=== PATIENT | male | born 1985 | race Caucasian/White ===

== ENCOUNTER 2020-10-24 18:56 | Emergency (ER) | payer OTHER, SELFPAY ==
[2020-10-24 19:34] VITALS: BP 123/72; PULSE 91; RESP 12; TEMP 36.1; O2SAT 95; BMI 55.3
--- NOTE | 2020-10-24 19:41 | MHC.RECOVSUP ---
? Reason for consult overdose o Current location:ED22H o Identified substance use concern: Heroin - Overdose - Support ? Intervention: o Community resources provided o Harm reduction discussion ? Plan: o Patient to follow up with H after discharge ? Additional information: Patient refused any service But did want resources.. Patient is currently on MAT (Suboxone). Patient stated that he had a relapse and that he don't need a detox But wanted the resources.
--- NOTE | 2020-10-24 21:08 | ED.OVERDOSE ---
HPI - Overdose General Chief Complaint: Overdose Stated Complaint: HEROIN USE Time Seen by Provider: 10/24/20 21:08 History of Present Illness HPI Narrative: Patient 35 years old history of heroin abuse. History of being on Suboxone. Patient took himself off from Suboxone and decided take heroin today. Was found not breathing well. Sent in by EMS. No Narcan was given but patient seems extremely lethargic, sent in for further evaluation. Related Data Allergies Allergy/AdvReac Type Severity Reaction Status Date / Time No Known Allergies Allergy Unverified 04/12/20 15:21 [No Known Allergies*] Review of Systems Review of Systems: Positive shortness of breath positive generalized malaise. All systems reviewed otherwise negative Yes all other systems are reviewed and are negative [facility] Past Medical History Attestation statement: The following information was validated with the patient. Social History Social History Advance Directives: No Advance Directives Information Provided: Yes Physical Exam Vital Signs: Vital Signs: Last Vital Signs Temp 96.9 F 10/24/20 19:34 Pulse 91 10/24/20 19:34 Resp 12 10/24/20 19:34 BP 123/72 10/24/20 19:34 Pulse Ox 95 10/24/20 19:34 Body Mass Index 55.3 Appearance: Alert. Oriented X3. No acute distress. Eyes: Pinpoint pupils bilaterally. ENT: Pharynx normal. Neck: Normal inspection. Neck supple. No lymph nodes noted. No crepitus CVS: Normal heart rate and rhythm. Pulses normal. Normal S1 and S2 Respiratory: No respiratory distress. Breath sounds normal. No Wheezing. No rales Abdomen: Soft and nontender. No rigidity. No distention. good BS x4 Skin: Skin warm and dry. Normal skin color. Normal skin turgor. Extremities: No lower extremity edema. Neurovascular intact to all extremities. No Lacerations. No Rash Neuro: Oriented X 3. No motor deficit. No sensory deficit. Moving all extermities. No slurred speech MDM - Overdose MDM Narrative Medical decision making narrative: Patient monitor in the emergency department for over 2 hours. Is awake alert. Will have patient's family take him home. Patient told to stop using narcotics. Told that he might if he continued to use narcotics. Will send home a nasal Narcan kit. In stable condition. 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 Patient did not want detox at this time Discharge Plan Discharge Clinical Impression: Drug overdose Patient Disposition: Home, Self-Care Instructions: Narcotic Safety (ED), Narcotic Use Disorder (ED) Additional Instructions: Please stop using narcotics. Using narcotics and kill you. He almost today. Please go to detox. Referrals: Zahra Landis NP-C [Primary Care Provider] - 2 days
[2020-10-24] MEDS: Naloxone HCl Nasal TAKE HOME 4 MG SPRAY NOSTRILALT (21:25)
[2020-10-24 21:32] VITALS: BP 118/80; PULSE 91; RESP 16; O2SAT 97
== END 2020-10-24 21:33 | disposition home or self-care (01) ==
PROVIDERS: Emergency Provider Emergency Medicine Emergency Medical Services; PCP Nurse Practitioner Family
DX: T40.1X1A Poisoning by heroin, accidental (unintentional), initial encounter (principal); Y92.9 Unspecified place or not applicable; R06.02 Shortness of breath; Z71.51 Drug abuse counseling and surveillance of drug abuser
CPT/HCPCS: 99284

== ENCOUNTER 2020-10-24 23:03 | Emergency (ER) | payer OTHER, SELFPAY ==
--- NOTE | ~2020-10-24 | XR_ITS ---
EXAMINATION: CHEST 1 VIEW CLINICAL INFORMATION: Shortness of breath. COMPARISON: 10/13/2015. TECHNIQUE: An AP view of the chest is provided. FINDINGS: The cardiac silhouette is not enlarged. The mediastinal and hilar contours are unremarkable. There are neither pleural effusions nor pneumothoraces. There are no consolidations. The osseous structures are stable. XR/XR chest 1V IMPRESSION: No evidence for acute disease.
[2020-10-24 23:51] VITALS: BP 117/69; PULSE 83; RESP 8; TEMP 36.9; O2SAT 95; BMI 29.5
[2020-10-25 00:16] VITALS: O2SAT 97
--- NOTE | 2020-10-25 01:07 | ED.OVERDOSE ---
HPI - Overdose General Chief Complaint: Overdose Stated Complaint: SOB Time Seen by Provider: 10/25/20 00:12 History of Present Illness HPI Narrative: Patient is a 35-year-old male was in the hospital earlier for altered mental status decreased respiratory rate after using heroin. Patient was monitored emergency department for 3 hours. Went home. Became more sleepy again. Family sent the patient back into the emergency department. He denies any fever chills cough and congestion upper respiratory symptoms. No diaphoresis. Patient has no specific complaint at this time. Patient denies using additional heroin after he went home. Related Data Allergies Allergy/AdvReac Type Severity Reaction Status Date / Time No Known Allergies Allergy Unverified 04/12/20 15:21 [No Known Allergies*] Review of Systems Review of Systems: Constitutional: No Weight loss, No Fever, No Chills, No Night Sweats, No Fatigue, No Malaise ENT/Mouth: No Hearing loss, No Ear Pain, No Nasal Congestion, No Sinus Pain, No Hoarseness, No sore throat, No Rhinorrhea, No Swallowing Difficulty Eyes: No Eye Pain, No Swelling, No Redness, No Foreign Body, No Discharge, No Vision Changes Cardiovascular: No Chest Pain, No SOB, No Dyspnea on Exertion, No Orthopnea, No Edema, No Palpitations Respiratory: No Cough, No Sputum, No Wheezing, No Smoke Exposure, No Dyspnea Gastrointestinal: No Nausea, No Vomiting, No Diarrhea, No Constipation, No abdominal Pain, No Hematochezia, No Melena Genitourinary: no irregular bleeding, No Dysuria, No Urinary Frequency, No Hematuria, No Urinary Incontinence, No Urgency, No Flank Pain, No Urinary Flow Changes, No Hesitancy Musculoskeletal: No joint pain, No Myalgias, No Joint Swelling Skin: No Skin Lesions, No rash Neuro: No Weakness, No Numbness, No Paresthesias, No Loss of Consciousness, No Dizziness, No Headache Psych: No Anxiety/Panic, No Depression, No SI/HI/AH/VH, No Social Issues, Heme/Lymph: No Bruising, No Bleeding,No Lymphadenopathy Endocrine: No Polyuria, No Polydipsia, No Temperature Intolerance PMF Past Medical History Attestation statement: The following information was validated with the patient. Medical History Asthma Social History Social History Substance Use Type: Heroin Substance Use Frequency: Daily Last Used Substance: Hours (ago) Any prior treatment program specific to substance use: Yes Advance Directives: No Physical Exam Vital Signs: Vital Signs: Last Vital Signs Temp 98.5 F 10/24/20 23:51 Pulse 83 10/24/20 23:51 Resp 8 L 10/24/20 23:51 BP 117/69 10/24/20 23:51 Pulse Ox 97 10/25/20 00:16 Body Mass Index 29.5 Appearance: Arousable but lethargic. No acute distress. Eyes: Pupils equal, round and reactive to light. ENT: Pharynx normal. Neck: Normal inspection. Neck supple. No lymph nodes noted. No crepitus CVS: Normal heart rate and rhythm. Pulses normal. Normal S1 and S2 Respiratory: No respiratory distress. Breath sounds normal. No Wheezing. No rales Abdomen: Soft and nontender. No rigidity. No distention. good BS x4 Skin: Skin warm and dry. Normal skin color. Normal skin turgor. Extremities: No lower extremity edema. Neurovascular intact to all extremities. No Lacerations. No Rash Neuro: Oriented X 3. No motor deficit. No sensory deficit. Moving all extermities. No slurred speech MDM - Overdose MDM Narrative Medical decision making narrative: Will get chest x-ray labs. Will monitor patient patient carefully for the next few hours. Patient's chest x-ray is grossly negative for any acute evidence of pneumonia. Additional labs are pending. COVID test is pending. Lab Data Result diagrams: 10/25/20 01:08 10/25/20 01:08 Labs: Lab Results 10/25/20 10/25/20 Range/Units 01:08 01:08 WBC 8.5 (4.8-10.8) X10*3/uL RBC 4.38 L (4.60-5.80) X10*6/uL Hgb 12.7 L (14.0-18.0) g/dl Hct 38.5 L (42-52) % MCV 87.9 (80-98) fL MCH 29.0 (27.0-33.0) pg MCHC 33.0 (31.0-36.0) g/dl RDW 11.9 (11.0-16.0) % Plt Count 179 (160-400) X10*3/uL MPV 10.1 (9.4-12.4) fL Immature Gran % (Auto) 0.1 (0.0-0.4) % Neut % (Auto) 53.9 (45-73) % Lymph % (Auto) 30.5 (20-40) % [place] % (Auto) 8.8 (2-11) % Eos % (Auto) 6.0 H (0-4) % Baso % (Auto) 0.7 (0-2) % Lymph # (Auto) 2.6 (1.2-4.9) X10*3/uL [place] # (Auto) 0.8 (0.1-1.2) X10*3/uL Eos # (Auto) 0.5 H (0.0-0.4) X10*3/uL Baso # (Auto) 0.1 (0.0-0.2) X10*3/uL Abs Immat Gran (auto) 0.01 (0.00-0.03) X10*3/uL Absolute Neuts (auto) 4.6 (2.0-8.3) X10*3/uL Absolute Nucleated RBC 0.000 (0.0-0.012) X10*3/uL Nucleated RBC % (auto) 0.0 (0.0-0.2) /100WBC COVID-19 (RAMONE) Negative (Negative) COVID-19 Clin Com See Note
[2020-10-25 01:12] LABS: MANUAL DIFF FLAG NO
[2020-10-25 01:13] LABS: Basophils Absolute Auto 0.1 X10*3/uL (0.0-0.2); Basophils Percent Auto 0.7 % (0-2); Eosinophils Absolute Auto 0.5 X10*3/uL (0.0-0.4); Hematocrit 38.5 % (42-52); Hemoglobin 12.7 g/dl (14.0-18.0); Imm Gran Abs Auto 0.01 X10*3/uL (0.00-0.03); Imm Gran Pct Auto 0.1 % (0.0-0.4); Lymphocytes Absolute Auto 2.6 X10*3/uL (1.2-4.9); Lymphocytes Percent Auto 30.5 % (20-40); Mean Corpuscular Volume 87.9 fL (80-98); Mean Platelet Volume 10.1 fL (9.4-12.4); Monocytes Absolute Auto 0.8 X10*3/uL (0.1-1.2); Monocytes Percent Auto 8.8 % (2-11); Neutrophils Absolute Auto 4.6 X10*3/uL (2.0-8.3); Neutrophils Percent Auto 53.9 % (45-73); Platelet Count 179 X10*3/uL (160-400); Red Blood Count 4.38 X10*6/uL (4.60-5.80); Red Cell Distribution Width 11.9 % (11.0-16.0); White Blood Count 8.5 X10*3/uL (4.8-10.8)
[2020-10-25 01:29] LABS: COVID-19 Test Negative (Negative)
[2020-10-25 01:43] LABS: Ethanol < 10 mg/dL
[2020-10-25 01:45] LABS: Anion Gap 11 (12-20); Blood Urea Nitrogen 15 mg/dL (9-16); Calcium 8.7 mg/dL (8.4-10.2); Carbon Dioxide 32 mmol/L (22-29); Chloride 103 mmol/L (96-108); Creatinine Clr Calc Pharmacy 127.7; Estimated Glomerular Filt Rate > 60; Glucose Random 88 mg/dL (60-115); Potassium 4.1 mmol/L (3.3-5.1); Sodium 142 mmol/L (135-145)
[2020-10-25] MEDS: 0.9 % Sodium Chloride 1,000 ML 999 ML IV (02:02)
[2020-10-25 04:05] VITALS: PULSE 89; RESP 14; TEMP 36.5; O2SAT 98
[2020-10-25 06:00] VITALS: BP 124/70; PULSE 102; RESP 16; TEMP 36.7; O2SAT 97
== END 2020-10-25 08:07 | disposition home or self-care (01) ==
PROVIDERS: Emergency Provider Emergency Medicine Emergency Medical Services
DX: T40.1X1A Poisoning by heroin, accidental (unintentional), initial encounter (principal); Y92.9 Unspecified place or not applicable; R06.02 Shortness of breath; Z20.822 Contact with and (suspected) exposure to COVID-19
CPT/HCPCS: 36415; 71045; 80048; 80320; 85025; 87635; 96360; 99284

== ENCOUNTER 2021-11-12 18:29 | Emergency (ER) | payer OTHER, SELFPAY ==
--- NOTE | 2021-11-12 18:35 | ED_ITS ---
HPI - Overdose General Chief Complaint: Overdose Stated Complaint: HEROIN OD,8MG NARCAN GIVEN W/GOOD RESULT PER EMS Time Seen by Provider: 11/12/21 18:35 Source: patient Mode of arrival: EMS Limitations: no limitations History of Present Illness HPI Narrative: used today after being sober - found 4 bags sniffed them. family found him overdosed, denies prolonged downtime MD complaint: accidental overdose Onset (ago): minute(s) Timing confirmed by: family member Context: Accidental Overdose: wanted to get high Associated symptoms: other (tachycardia) Treatments Prior to Arrival: narcan (8mg IN narcan by family ) Related Data Allergies Allergy/AdvReac Type Severity Reaction Status Date / Time No Known Allergies Allergy Unverified 04/12/20 15:21 [No Known Allergies*] Review of Systems Review of Systems: Constitutional : No Fever, No Chills, No Fatigue, No Malaise ENT/Mouth : No sore throat, No Rhinorrhea Eyes: No Eye Pain, No Swelling, No Redness Cardiovascular : No Chest Pain, No SOB, No Edema, No Palpitations Respiratory : No Cough, No Sputum, No Wheezing Gastrointestinal : No Nausea, No Vomiting, No Diarrhea, No Constipation, No abdominal Pain Genitourinary : No Dysuria, No Urinary Frequency, No Hematuria, Musculoskeletal : No joint pain, No Myalgias, No Joint Swelling Skin : No Skin Lesions, No rash Neuro : No Weakness, No Numbness, No Dizziness, No Headache Psych : No Anxiety/Panic, No Depression, no SI/HI All other systems reviewed and are negative [facility] Past Medical History Attestation statement: The following information was validated with the patient. Medical History Asthma Social History Social History (Updated 11/12/21 @ 19:10 by Tatiana Mcclain DO) Patient Tobacco Use Status: Never used Tobacco Use of substances other than those prescribed or required for medical reasons: Yes Substance Use Type: Heroin Advance Directives: No Advance Directives Information Provided: No Physical Exam Vital Signs: Vital Signs: Last Vital Signs Temp 97.5 F 11/12/21 18:53 Pulse 128 H 11/12/21 18:53 Resp 16 11/12/21 18:53 BP 138/96 H 11/12/21 18:53 Pulse Ox 96 11/12/21 18:53 BMI result Body Mass Index 30.2 Appearance: Alert. Oriented X3. No acute distress. Annoyed Eyes: Pupils equal, round and reactive to light. ENT: Pharynx normal. Neck: Normal inspection. Neck supple. CVS: tachycardic heart rate and rhythm. Pulses normal. Respiratory: No respiratory distress. Breath sounds normal. Abdomen: Soft and non-tender. Skin: Skin warm and dry. Normal skin color. Normal skin turgor. Extremities: No lower extremity edema. No calf ttp Neuro: Oriented X 3. No motor deficit. No sensory deficit. Course Course Course Narrative: HR down to 78 observed for 2.5 hours no need for repeat narcan states he is following up with [facility] still refsues all services here MDM - Overdose MDM Narrative Medical decision making narrative: 36 yo male with hx of substance abuse hadn't used in a while - found 4 bags at home sniffed them. Unintentional overdose - family gave 8mg [place] narcan awake on PD and EMS arrival. He denies SI. He is refusing detox and SUDE evaluation. He is tachycardic but states he is anxious - refusing line and labs. Discharge Plan Discharge Clinical Impression: Opiate overdose Patient Disposition: Home, Self-Care Instructions: Opioid Use Disorder (ED) Additional Instructions: return to ED for any worsening symptoms or concerns stay with a responsible adult if you change your mind and want help with detox, suboxone, methadone we are here
[2021-11-12 18:38] VITALS: BP 131/91; BP 165/110; PULSE 139; PULSE 160; RESP 14; TEMP 36.8; O2SAT 100; O2SAT 96; BMI 30.2
[2021-11-12 18:47] VITALS: PULSE 148
[2021-11-12 18:53] VITALS: BP 138/96; PULSE 128; RESP 16; TEMP 36.4; O2SAT 96
[2021-11-12 20:28] VITALS: PULSE 78
[2021-11-12 20:47] VITALS: BP 143/91; PULSE 100; RESP 15; TEMP 36.4; O2SAT 97
--- NOTE | 2021-11-12 20:51 | HO.SUDE ---
Pt declined to complete a SUDE.
== END 2021-11-12 21:08 | disposition home or self-care (01) ==
PROVIDERS: Emergency Provider Emergency Medicine; PCP Internal Medicine
DX: T40.1X1A Poisoning by heroin, accidental (unintentional), initial encounter (principal); Y92.9 Unspecified place or not applicable; R00.0 Tachycardia, unspecified; Z71.51 Drug abuse counseling and surveillance of drug abuser
CPT/HCPCS: 99283; 99284

== ENCOUNTER 2022-02-22 08:24 | Outpatient (REF) | payer OTHER, SELFPAY ==
[2022-02-22 08:36] LABS: MANUAL DIFF FLAG NO
[2022-02-22 09:55] LABS: Basophils Absolute Auto 0.1 X10*3/uL (0.0-0.2); Basophils Percent Auto 0.8 % (0-2); Eosinophils Absolute Auto 0.2 X10*3/uL (0.0-0.4); Eosinophils Percent Auto 2.6 % (0-4); Hematocrit 50.4 % (42.0-52.0); Hemoglobin 16.9 g/dl (14.0-18.0); Imm Gran Abs Auto 0.02 X10*3/uL (0.00-0.03); Imm Gran Pct Auto 0.3 % (0.0-0.4); Lymphocytes Absolute Auto 1.7 X10*3/uL (1.2-4.9); Lymphocytes Percent Auto 26.5 % (20-40); Mean Corpuscular HGB Conc 33.5 g/dl (31.0-36.0); Mean Corpuscular Hemoglobin 28.9 pg (27.0-33.0); Mean Corpuscular Volume 86.2 fL (80.0-98.0); Monocytes Absolute Auto 0.6 X10*3/uL (0.1-1.2); Monocytes Percent Auto 9.1 % (2-11); Neutrophils Absolute Auto 3.9 x10*3/uL (2.0-8.3); Neutrophils Percent Auto 60.7 % (45-73); Platelet Count 257 X10*3/uL (160-400); Red Blood Count 5.85 X10*6/uL (4.60-5.80); Red Cell Distribution Width 12.5 % (11.0-16.0); White Blood Count 6.5 X10*3/uL (4.8-10.8)
[2022-02-22 10:10] LABS: Alanine Aminotransferase 33 U/L (0-40); Albumin Level 4.6 g/dL (3.5-5.0); Alkaline Phosphatase 68 U/L (39-117); Anion Gap 15 (12-20); Aspartate Amino Transferase 39 U/L (5-37); Bilirubin Total 0.4 mg/dL (0.0-1.0); Blood Urea Nitrogen 13 mg/dL (9-16); Calcium 10.9 mg/dL (8.4-10.2); Carbon Dioxide 27 mmol/L (22-29); Chloride 104 mmol/L (96-108); Cholesterol 204 mg/dL; Estimated Glomerular Filt Rate > 60; Glucose Fasting 101 mg/dL (60-99); HDL Cholesterol 52 mg/dL; LDL Cholesterol Calculated 140 mg/dl; Potassium 4.7 mmol/L (3.3-5.1); Sodium 141 mmol/L (135-145); Total Protein 7.4 g/dL (6.5-8.0); Triglycerides 61 mg/dL
[2022-02-22 10:32] LABS: TSH reflex Free T4 0.53 uIU/mL (0.32-4.0)
== END 2022-02-22 08:25 | disposition home or self-care (01) ==
LOC: HO.LAB 08:24
PROVIDERS: PCP Internal Medicine; Visit Provider Nurse Practitioner Family
DX: I10 Essential (primary) hypertension (principal); E78.00 Pure hypercholesterolemia, unspecified; F11.90 Opioid use, unspecified, uncomplicated; Z76.89 Persons encountering health services in other specified circumstances
CPT/HCPCS: 36415; 80053; 80061; 84443; 85025

== ENCOUNTER 2022-04-13 12:00 | Outpatient (REF) | payer OTHER, SELFPAY ==
--- NOTE | 2022-04-13 14:18 | PFT_ITS ---
INDICATION: Asthma. SPIROMETRY: FEV1 to FVC of 77% with an FEV1 of 4.33 L, which is 107% predicted and an FVC of 5.63 L, which is 212% predicted. No significant response to bronchodilators noted. To note, the [id number] was decreased down to 76% predicted and corrected to normal after bronchodilator is administered. Maximum voluntary ventilation 75% predicted. LUNG VOLUMES: Total lung capacity 110% predicted with residual volume 70% predicted. DIFFUSION CAPACITY: DLCO 113% predicted. COMPARISONS: None. INTERPRETATION: No obstructive nor restrictive ventilatory defects identified. Although, the patient did have some evidence of small airway disease, which could be appreciated with asthma. Lung volumes are within normal limits. Diffusion capacity also within normal limits. Clinical correlation warranted. Zen Lewis MD MR/MODL / [id number]
== END 2022-04-13 12:01 | disposition home or self-care (01) ==
LOC: HO.RESP 12:00
PROVIDERS: PCP Internal Medicine; Visit Provider Internal Medicine
DX: R06.00 Dyspnea, unspecified (principal)
CPT/HCPCS: 94060; 94727; 94729

== ENCOUNTER 2022-05-26 06:40 | Outpatient (REF) | payer OTHER, SELFPAY ==
[2022-05-26 08:15] LABS: Alanine Aminotransferase 25 U/L (0-40); Albumin Level 4.3 g/dL (3.5-5.0); Alkaline Phosphatase 64 U/L (39-117); Anion Gap 16 (12-20); Aspartate Amino Transferase 23 U/L (5-37); Bilirubin Total 0.4 mg/dL (0.0-1.0); Blood Urea Nitrogen 13 mg/dL (9-16); Calcium 9.4 mg/dL (8.4-10.2); Carbon Dioxide 26 mmol/L (22-29); Chloride 104 mmol/L (96-108); Cholesterol 183 mg/dL; Estimated Glomerular Filt Rate > 60; Glucose Fasting 92 mg/dL (60-99); HDL Cholesterol 45 mg/dL; LDL Cholesterol Calculated 87 mg/dl; Potassium 4.4 mmol/L (3.3-5.1); Sodium 142 mmol/L (135-145); Total Protein 7.2 g/dL (6.5-8.0); Triglycerides 258 mg/dL
[2022-05-27 11:41] LABS: Calcium (PTHI) 9.3 mg/dL (8.6-10.3); PTHI 81 pg/mL (16-77)
[2022-05-28 15:12] LABS: Calcium, Ionized 4.9 mg/dL (4.8-5.6)
== END 2022-05-26 06:41 | disposition home or self-care (01) ==
LOC: HO.LAB 06:40
PROVIDERS: PCP Nurse Practitioner Family; Visit Provider Nurse Practitioner Family
DX: E83.52 Hypercalcemia (principal); E78.5 Hyperlipidemia, unspecified
CPT/HCPCS: 36415; 80053; 80061; 82330; 83970

== ENCOUNTER 2022-10-20 14:21 | Emergency (ER) | payer OTHER, SELFPAY ==
--- NOTE | 2022-10-20 14:32 | ECG_ITS ---
Test Reason : OVERDOSE Blood Pressure : / mmHG Vent. Rate : 145 BPM Atrial Rate : 145 BPM P-R Int : 124 ms QRS Dur : 082 ms QT Int : 280 ms P-R-T Axes : 041 -18 017 degrees QTc Int : 434 ms Sinus tachycardia Minimal voltage criteria for LVH, may be normal variant ( R in aVL ) Abnormal ECG No previous ECGs available Referred By: Kadeem Rosario Electronically Signed By:JORDY HERNANDEZ
--- NOTE | 2022-10-20 14:35 | ED.GENADULT ---
HPI - General Adult General Chief complaint: Overdose Stated complaint: OD,IV NARCAN GIVEN W/GOOD RESULT PER EMS Time Seen by Provider: 10/20/22 14:27 Source: patient Mode of arrival: EMS Limitations: no limitations History of Present Illness HPI narrative: 37-year-old male with reportedly no significant past medical history presents with acute overdose accidental. Denies SI or HI. Patient reportedly will has been clean for the past year. Today use for the 1st time in a while. He was found face down by colleagues at work today. EMS arrived, gave him 0.4 mg of Narcan intravenously. Since then he has been alert. Patient denies any nausea, vomiting, lightheadedness, chest pain, palpitations or shortness of breath. Patient's symptoms are described as severe. They were worsened by and acute drug use. They are approved by [employer]. Related Data Home Medications Medication Instructions Recorded Confirmed clonazepam 1 mg tablet 1 mg PO TID PRN 11/21/21 09/26/22 fluoxetine 20 mg capsule 20 mg PO DAILY 11/21/21 09/26/22 ibuprofen 400 mg tablet 400 mg PO TID 11/21/21 09/26/22 Previous Rx's Medication Instructions Recorded albuterol sulfate 90 mcg/actuation 2 puff inhalation Q4-6H PRN 06/11/22 aerosol inhaler (ProAir HFA) shortness of breath or wheezing #8.5 grams omeprazole 20 mg capsule,delayed 20 mg PO DAILY #30 caps 08/04/22 release lidocaine 4 % topical patch 1 patch topical DAILY PRN pain #30 09/26/22 (Aspercreme (lidocaine)) ea sildenafil 25 mg tablet (Viagra) 25 mg PO DAILY PRN sexual activity 09/26/22 #10 tabs cyclobenzaprine 5 mg tablet 5 mg PO BID PRN muscle spasm #20 10/14/22 tabs Allergies Allergy/AdvReac Type Severity Reaction Status Date / Time No Known Allergies Allergy Verified 09/26/22 14:17 [No Known Allergies*] [facility] Past Medical History Medical History Asthma Encounter to establish care Surgical History No pertinent past surgical history Family History Family History Mother Lung cancer Father COPD (chronic obstructive pulmonary disease) Social History Social History Housing: House Patient Tobacco Use Status: Never used Tobacco Smoked in Last 30 Days: Yes e-Cigarette/Vaping Use: Never Used Use of substances other than those prescribed or required for medical reasons: Yes Substance Use Type: Opiates Substance Use Frequency: Chronic Longstanding Substance Use Frequency Other:: has been clean for one year, used for first time again today Last Used Substance: Just Prior to Admission Any prior treatment program specific to substance use: Yes Advance Directives: No Advance Directives Information Provided: No service: No Current occupational status: unemployed Current occupational exposures/hazards: No Cognitive needs: No Hearing needs: No Vision needs: No Physical Exam ED Vital Signs: Vital Signs - 24 hr 10/20/22 14:37 10/20/22 15:29 Temperature 98.0 F 98.0 F Pulse Rate 150 H 139 H Respiratory Rate 12 15 Blood Pressure 124/77 138/93 H Pulse Oximetry 91 L 90 L Oxygen Delivery Method Room Air Room Air BMI result Body Mass Index 31.7 GEN: Well developed, no acute distress, alert, oriented, diaphoretic, pale appearing HEENT: Normocephalic, atraumatic, normal external ears, nose appears normal, no oropharyngeal edema or exudates Eyes: Normal to appearance Neck: Supple, no lymphadenopathy Respiratory: Talks in complete sentences, no respiratory distress, clear to auscultation bilaterally Cardiovascular: Regular rate and rhythm, no murmurs rubs or gallops tachycardic Abdomen: Soft, nontender, nondistended, no guarding, no rebound Back: No CVA tenderness Extremities: No clubbing cyanosis or edema Neurologic: No focal neurologic deficits, cranial nerves 2-12 intact, strength is 5/5 bilaterally, gait normal Skin: No rash Course Course Course Narrative: 37-year-old male presents with acute accidental overdose on opioids. Upon arrival, patient is tachycardic. He is diaphoretic. The rest of his exam is unremarkable. Patient will have IV placed, given intravenous fluids. Will check laboratory analysis. Will obtain EKG. Patient may be in SVT. Will give the patient additional supportive management. It is patient will be observed for at least 2 hours. Reevaluation(s) Reevaluation #1: patient alert, wants to go. Still tachycardic, doesn't wnat to wait for IVF to continue. He will follow up with PMD Time: 18:48 Medications Administered Discontinued Medications Generic Name Dose Route Start Last Admin Trade Name Smitha PRN Reason Stop Dose Admin Sodium Chloride 1,000 mls @ 999 mls/hr 10/20/22 14:45 10/20/22 15:51 Ns IV 10/20/22 15:45 Infused .Q1H1M BIBIANA Infusion Medical Decision Making Medical Decision Making [facility] Narrative: 37-year-old male presents with acute accidental overdose. He is not suicidal or homicidal. Upon arrival, he is diaphoretic and pale appearing. He is tachycardic. Patient reports having been clean for almost a year. Is given Narcan 0 point feeling mg before arrival. Patient will be given supportive therapy. Will check make sure he is not anemic, hyponatremia, hypokalemic. Will make sure he is not in SVT, atrial fibrillation, atrial flutter. Differential Diagnosis SVT, atrial fibrillation, atrial flutter, anemia, electrolyte abnormality Admission/Observation Consideration of admission/observation: Escalation of care including admission/observation considered Lab Data [facility] Lab Attestation statement: I reviewed the patient's lab results. 10/20/22 14:36 10/20/22 14:36 Labs: Lab Results 10/20/22 10/20/22 Range/Units 14:36 14:36 WBC 14.6 H (4.8-10.8) X10*3/uL RBC 5.77 (4.60-5.80) X10*6/uL Hgb 16.9 (14.0-18.0) g/dl Hct 50.1 (42.0-52.0) % MCV 86.8 (80.0-98.0) fL MCH 29.3 (27.0-33.0) pg MCHC 33.7 (31.0-36.0) g/dl RDW 12.2 (11.0-16.0) % Plt Count 272 (160-400) X10*3/uL MPV 10.6 (9.4-12.4) fL Immature Gran % (Auto) 0.8 H (0.0-0.4) % Neut % (Auto) 72.1 (45-73) % Lymph % (Auto) 17.9 L (20-40) % [place] % (Auto) 5.1 (2-11) % Eos % (Auto) 3.3 (0-4) % Baso % (Auto) 0.8 (0-2) % Lymph # (Auto) 2.6 (1.2-4.9) X10*3/uL [place] # (Auto) 0.8 (0.1-1.2) X10*3/uL Eos # (Auto) 0.5 H (0.0-0.4) X10*3/uL Baso # (Auto) 0.1 (0.0-0.2) X10*3/uL Abs Immat Gran (auto) 0.11 H (0.00-0.03) X10*3/uL Absolute Neuts (auto) 10.5 H (2.0-8.3) x10*3/uL Absolute Nucleated RBC 0.000 (0.0-0.012) X10*3/uL Nucleated RBC % (auto) 0.0 (0.0-0.2) /100WBC Sodium 140 (135-145) mmol/L Potassium 3.8 (3.3-5.1) mmol/L Chloride 105 (96-108) mmol/L Carbon Dioxide 25 (22-29) mmol/L Anion Gap 14 (12-20) BUN 13 (9-16) mg/dL Creatinine 1.38 (0.5-1.4) mg/dL Estim Creat Clear Calc 83.5 Estimated GFR 58 Random Glucose 180 H (60-115) mg/dL Calcium 9.6 (8.4-10.2) mg/dL Total Bilirubin 0.3 (0.0-1.0) mg/dL AST 27 (5-37) U/L ALT 31 (0-40) U/L Alkaline Phosphatase 77 (39-117) U/L Total Protein 7.1 (6.5-8.0) g/dL Albumin 4.6 (3.5-5.0) g/dL Ethyl Alcohol < 10 mg/dL Independent Interpretation I performed an independent interpretation of an: EKG (Sinus tachycardia heart rate 145, rate related ST changes, possible LVH) Independent Historian Clinical information obtained from an independent historian. History obtained from or confirmed by: EMS External Record Review External record reviewed: Office record (Primary care visit on 09/26/2022.) Tests considered The following testing was considered but not selected: CT scan Prescription Management I considered prescription management with: Other (Anxiolytics) Chronic Conditions Patient?s care impacted by: Other (Anxiety, depression, drug abuse) Discharge Plan Discharge Clinical Impression: Opiate use, Hyperglycemia, Drug overdose, Sinus tachycardia, Leukocytosis Patient Disposition: Home, Self-Care Instructions: Adult Overdose (ED), Atrial Tachycardia (ED), Nondiabetic Hyperglycemia (ED) Prescriptions: No Action albuterol sulfate [ProAir HFA] 90 mcg/actuation HFA aerosol inhaler 2 puff inhalation Q4-6H PRN (Reason: shortness of breath or wheezing) Qty: 8.5 0RF omeprazole 20 mg capsule,delayed release(DR/EC) 20 mg PO DAILY Qty: 30 2RF cyclobenzaprine 5 mg tablet 5 mg PO BID PRN (Reason: muscle spasm) Qty: 20 0RF lidocaine [Aspercreme (lidocaine)] 4 % adhesive patch,medicated 1 patch topical DAILY PRN (Reason: pain) Qty: 30 0RF sildenafil [Viagra] 25 mg tablet 25 mg PO DAILY PRN (Reason: sexual activity) Qty: 10 0RF Rx Instructions: administer 30 minutes to 4 hours before activity clonazepam 1 mg tablet 1 mg PO TID PRN fluoxetine 20 mg capsule 20 mg PO DAILY ibuprofen 400 mg tablet 400 mg PO TID Referrals: Jun Hartman MD [Primary Care Provider] - 2 days Interventions: [place]-Suicide Risk Severity Scale Last Done: 10/20/22 14:44
[2022-10-20 14:37] VITALS: BP 124/77; PULSE 150; RESP 12; TEMP 36.7; O2SAT 91; BMI 31.7
[2022-10-20 14:44] LABS: MANUAL DIFF FLAG NO
[2022-10-20 14:45] LABS: Basophils Absolute Auto 0.1 X10*3/uL (0.0-0.2); Basophils Percent Auto 0.8 % (0-2); Eosinophils Absolute Auto 0.5 X10*3/uL (0.0-0.4); Eosinophils Percent Auto 3.3 % (0-4); Hematocrit 50.1 % (42.0-52.0); Hemoglobin 16.9 g/dl (14.0-18.0); Imm Gran Abs Auto 0.11 X10*3/uL (0.00-0.03); Imm Gran Pct Auto 0.8 % (0.0-0.4); Lymphocytes Absolute Auto 2.6 X10*3/uL (1.2-4.9); Lymphocytes Percent Auto 17.9 % (20-40); Mean Corpuscular HGB Conc 33.7 g/dl (31.0-36.0); Mean Corpuscular Hemoglobin 29.3 pg (27.0-33.0); Mean Corpuscular Volume 86.8 fL (80.0-98.0); Mean Platelet Volume 10.6 fL (9.4-12.4); Monocytes Absolute Auto 0.8 X10*3/uL (0.1-1.2); Monocytes Percent Auto 5.1 % (2-11); Neutrophils Absolute Auto 10.5 x10*3/uL (2.0-8.3); Neutrophils Percent Auto 72.1 % (45-73); Platelet Count 272 X10*3/uL (160-400); Red Blood Count 5.77 X10*6/uL (4.60-5.80); Red Cell Distribution Width 12.2 % (11.0-16.0); White Blood Count 14.6 X10*3/uL (4.8-10.8)
[2022-10-20] MEDS: 0.9 % Sodium Chloride 1,000 ML 999 ML IV (14:50)
[2022-10-20 15:04] LABS: Alanine Aminotransferase 31 U/L (0-40); Albumin Level 4.6 g/dL (3.5-5.0); Alkaline Phosphatase 77 U/L (39-117); Anion Gap 14 (12-20); Aspartate Amino Transferase 27 U/L (5-37); Bilirubin Total 0.3 mg/dL (0.0-1.0); Blood Urea Nitrogen 13 mg/dL (9-16); Calcium 9.6 mg/dL (8.4-10.2); Carbon Dioxide 25 mmol/L (22-29); Chloride 105 mmol/L (96-108); Creatinine Clr Calc Pharmacy 83.5; Estimated Glomerular Filt Rate 58; Ethanol < 10 mg/dL; Glucose Random 180 mg/dL (60-115); Potassium 3.8 mmol/L (3.3-5.1); Sodium 140 mmol/L (135-145); Total Protein 7.1 g/dL (6.5-8.0)
[2022-10-20 15:29] VITALS: BP 138/93; PULSE 139; RESP 15; TEMP 36.7; O2SAT 90
--- NOTE | 2022-10-20 18:34 | MHC.RECOVSUP ---
Reason for consult: Recovery Support o Current location: #19 o Identified substance use concern: Fentanyl - Overdose <del>-</del> <del>Withdrawal</del> <del>-</del> <del>Seeking</del> <del>ATS</del> <del>(detox)</del> - Support ? Intervention: <del>o</del> <del>ATS</del> <del>bed</del> <del>search</del> <del>started/completed/in</del> <del>process</del> <del>o</del> <del>MAT</del> <del>started</del> <del>or</del> <del>to</del> <del>be</del> <del>started</del> <del>o</del> <del>Community</del> <del>resources</del> <del>provided</del> <del>o</del> <del>Harm</del> <del>reduction</del> <del>discussion</del> ? Plan: <del>o</del> <del>Referral</del> <del>to</del> <del>CCC</del> <del>o</del> <del>Bed</del> <del>search</del> <del>in</del> <del>progress</del> <del>to</del> <del>o</del> <del>Follow</del> <del>up</del> <del>tomorrow</del> <del>o</del> <del>Patient</del> <del>awaiting</del> <del>crisis</del> <del>evaluation</del> <del>o</del> <del>Patient</del> <del>to</del> <del>follow</del> <del>up</del> <del>with</del> <del>[facility]</del> <del>after</del> <del>discharge</del> ? Additional information: I was able to speak with pt and he stated that what happened today was a mistake. states that he has almost a year since the last time that he used any substance. states that he is involved in AA, has a sponsor, works and has a network. pt stated that his mother recently and he is going through a bad break up. he also hurt his back at work. someone at work offered him something to sniff and he didnt think that he would OD. I asked him if he would be interested in Vivitrol and he said no. pt seemed really eager to want to leave the ED. pt was not interested in any recovery resource.
[2022-10-20 18:57] VITALS: PULSE 140; O2SAT 95
== END 2022-10-20 18:58 | disposition home or self-care (01) ==
PROVIDERS: Emergency Provider Emergency Medicine; PCP Internal Medicine
DX: T40.1X1A Poisoning by heroin, accidental (unintentional), initial encounter (principal); Y92.9 Unspecified place or not applicable; R00.0 Tachycardia, unspecified; R73.9 Hyperglycemia, unspecified; Z79.899 Other long term (current) drug therapy; Z71.51 Drug abuse counseling and surveillance of drug abuser
CPT/HCPCS: 36415; 80053; 82077; 85025; 93005; 96360; 99284; 99285

== ENCOUNTER 2022-10-21 08:23 | Emergency (ER) | payer OTHER, SELFPAY ==
--- NOTE | ~2022-10-21 | CT_ITS ---
EXAMINATION: CT CERVICAL SPINE WITHOUT CONTRAST CLINICAL INFORMATION: Status post fall with neck pain. COMPARISON: None available. TECHNIQUE: Multiple axial images of the cervical spine were obtained without the administration of intravenous contrast. Coronal and sagittal reformatted images were obtained. There is some limitation secondary to motion artifact. This CT examination was performed using dose optimization techniques as appropriate, variously including the following: *Automated exposure control *Adjustment of mA and/or kV according to patient size (this includes techniques or standardized protocols for targeted exams where dose is matched to indication/reason for exam; i.e. extremities or head) *Use of iterative reconstruction technique DLP: 631.64 mGy-cm FINDINGS: There is straightening of the normal cervical lordosis with otherwise normal spinal alignment. The vertebral bodies are intact. The intervertebral disc spaces are unremarkable. The neural foramina are patent. The facet joints are unremarkable. The spinous processes are intact. The cervical soft tissues are unremarkable. There is no lymphadenopathy. The thyroid gland is unremarkable. CT/CT cervical spine wo IV con IMPRESSION: Straightening of the normal cervical lordosis may be secondary to positioning and/or muscle spasm. No acute abnormality. Fleischner guidelines were followed.
--- NOTE | ~2022-10-21 | CT_ITS ---
EXAMINATION: CT HEAD WITHOUT CONTRAST CLINICAL INFORMATION: Status post fall with head pain. COMPARISON: None available. TECHNIQUE: Contiguous axial imaging was performed from the skull base to vertex without intravenous administration of contrast. Coronal and sagittal reformatted images were obtained. This CT examination was performed using dose optimization techniques as appropriate, variously including the following: *Automated exposure control *Adjustment of mA and/or kV according to patient size (this includes techniques or standardized protocols for targeted exams where dose is matched to indication/reason for exam; i.e. extremities or head) *Use of iterative reconstruction technique DLP: 671.17 mGy-cm FINDINGS: The cortical sulci are normal. The lateral ventricles are symmetrical. The third and fourth ventricles are in their normal midline position. The basilar and prepontine cisterns are unremarkable. There is no acute intra or extracerebral abnormality. There is no mass effect or midline shift. Mild asymmetric soft tissue swelling in the right frontal region. Sections through the bony calvarium are unremarkable. The paranasal sinuses show small retention cyst versus inflammatory polyp posteriorly in the left maxillary sinus. The bony orbits and orbital contents are unremarkable. Mild anterior nasal septal deviation is seen, apex of the right. Small apical spur in the mid to posterior septum on the right. CT/CT head/brain wo IV con IMPRESSION: 1. No acute intracranial abnormality. 2. Mild asymmetric soft tissue swelling in the right frontal region without acute underlying osseous abnormality. Correlate with physical exam.
--- NOTE | 2022-10-21 08:27 | PC.NURSE ---
security aware of pt arrival
[2022-10-21 08:30] VITALS: BP 151/97; PULSE 113; RESP 14; TEMP 37; O2SAT 96; BMI 31.7
--- NOTE | 2022-10-21 08:38 | PC.NURSE ---
changed over by security. belongings to decon.
--- NOTE | 2022-10-21 10:38 | HO.SUDE ---
This law writer met w/ patient, patient was alert, sitting up in bed, sipping water. Patient reports took an illicit fentanyl pressed pill sold as a perc 30 . Patient reports took PO pill yesterday at work and overdosed at work and came here. Patient states this a.m., took a piece of pressed pill and overdosed. Patient reports has been in recovery for one year from opiates. Patient states had been on Vivitrol, prior to 3 months ago. Patient reports no ETOH use since 2018. Patient reports in the past had tried BUP for 1.5 years, did not have a good experience and transitioned to Vivitrol. Patient reports passing of mother recently and end of 4 year relationship, contributing to reoccurrence. Patient states has a home recovery group and sponsor, attends therapy weekly at [facility]. Harm reduction reviewed. Patient reports has naltrexone pills at home, plans to take if has craving/urge, reviewed precipitated withdrawal, patient aware of precipitated withdrawal will hold on taking naltrexone pill for at least 5 days. T/W reviewed services offered at the [facility], reminded patient if wants to start MAT, can make appt here at [facility] – [place], [place]. Patient verbalized understanding. Patient would like narcan rx at discharge.
[2022-10-21 10:57] LABS: Amphetamine Screen Urine Not Detected (Not Detect); Barbiturates, Urine Not Detected (Not Detect); Benzodiazepines Screen Urine POSITIVE (Not Detect); Cannabinoid Screen Urine Not Detected (Not Detect); Cocaine Screen Urine Not Detected (Not Detect); Fentanyl, urine POSITIVE (Not Detect); Opiate Screen Urine POSITIVE (Not Detect); Phencyclidine Screen Urine Not Detected (Not Detect)
--- NOTE | 2022-10-21 11:14 | ED_ITS ---
HPI - Overdose General Chief Complaint: Overdose Stated Complaint: OD Time Seen by Provider: 10/21/22 08:37 Source: patient and EMS Mode of arrival: EMS Limitations: no limitations History of Present Illness HPI Narrative: 37-year-old male came in by ambulance after was found unresponsive by his father who administered 4 mg of nasal Narcan and patient responded back, patient admitted to sniffing a blue pill that he poured from the street assuming it is Percocet. Patient stated that he fell hit his head and complaining of headache. Patient stated that he is overdose accidentally with no SI or HI no hallucina tion. Related Data Home Medications Medication Instructions Recorded Confirmed clonazepam 1 mg tablet 1 mg PO TID PRN 11/21/21 09/26/22 fluoxetine 20 mg capsule 20 mg PO DAILY 11/21/21 09/26/22 ibuprofen 400 mg tablet 400 mg PO TID 11/21/21 09/26/22 Previous Rx's Medication Instructions Recorded albuterol sulfate 90 mcg/actuation 2 puff inhalation Q4-6H PRN 06/11/22 aerosol inhaler (ProAir HFA) shortness of breath or wheezing #8.5 grams omeprazole 20 mg capsule,delayed 20 mg PO DAILY #30 caps 08/04/22 release lidocaine 4 % topical patch 1 patch topical DAILY PRN pain #30 09/26/22 (Aspercreme (lidocaine)) ea sildenafil 25 mg tablet (Viagra) 25 mg PO DAILY PRN sexual activity 09/26/22 #10 tabs cyclobenzaprine 5 mg tablet 5 mg PO BID PRN muscle spasm #20 10/14/22 tabs Allergies Allergy/AdvReac Type Severity Reaction Status Date / Time No Known Allergies Allergy Verified 09/26/22 14:17 [No Known Allergies*] Review of Systems Review of Systems: All other systems are reviewed and are negative Constitutional: Reports as per HPI and Reports no additional constitutional complaints Eyes: Reports as per HPI and Reports no additional eye complaints Reports system reviewed and no additional complaints, except as documented Cardiovascular: Reports as per HPI and Reports no additional cardiovascular complaints Respiratory: Reports as per HPI and Reports no additional respiratory complaints Gastrointestinal: Reports as per HPI and Reports no additional gastrointestinal complaints Genitourinary: Reports no additional female genitourinary complaints Musculoskeletal: Reports no additional musculoskeletal complaints Skin/Breast: Reports system reviewed and no additional complaints, except as docu Psychiatric: Reports no additional psychiatric complaints Endocrine: Reports no additional endocrine complaints Hematologic/Lymphatic: Reports no additional hematologic/lymphatic complaints Allergic/Immunologic: Reports no additional allergic/immunologic complaints Reports system reviewed and no additional complaints, except as documented and Reports Abnormal speech present [facility] Past Medical History Medical History Asthma Encounter to establish care Surgical History No pertinent past surgical history Family History Family History Mother Lung cancer Father COPD (chronic obstructive pulmonary disease) Social History Social History Housing: House Patient Tobacco Use Status: Never used Tobacco e-Cigarette/Vaping Use: Never Used Use of substances other than those prescribed or required for medical reasons: Yes Substance Use Type: Opiates Advance Directives: No Advance Directives Information Provided: No service: No Current occupational status: unemployed Current occupational exposures/hazards: No Cognitive needs: No Hearing needs: No Vision needs: No Physical Exam Vital Signs: Vital Signs: Last Vital Signs Temp 98.6 F 10/21/22 08:30 Pulse 113 H 10/21/22 08:30 Resp 14 10/21/22 08:30 BP 151/97 H 10/21/22 08:30 Pulse Ox 96 10/21/22 08:30 O2 Del Method Room Air 10/21/22 08:30 BMI result Body Mass Index 31.7 Vital signs have been reviewed as appeared to be correct. Blood pressure normal. Heart rate elevated. Respiration rate normal. Temperature normal. Oxygen saturation normal. Appearance: Alert. Oriented X3. No acute distress. Head: Normal external exam. Normocephalic. Frontal small hematoma. No Herrmann signs noted. No raccoon eyes noted Eyes: PERRLA. EOMI. Conjunctiva and sclera normal. Eyelids normal. ENT: TM's Normal. Pharynx normal. Uvula midline. Moist mucous membranes. No trismus noted. No drooling noted. No muffled voice noted. Neck: Normal inspection. Neck supple. FROM. No adenopathy. Thyroid Normal. No meningeal signs. No neck mass noted. CVS: Normal heart rate and rhythm. Heart sound normal. No murmurs noted. Pulses normal throughout. Respiratory: No respiratory distress. Painless inspiration. Breath sounds normal. No wheezes/rales/rhonchi noted. Chest nontender. No accessory muscle usage noted or decreased air movement noted. Abdomen: Soft and nontender. Bowel sounds normal in all 4 quadrants. No distention noted. No organomegaly noted. No visible injury noted. Back: No CVA tenderness. Full range of motion noted. Skin: Skin warm and dry. Normal skin color. Normal skin turgor. No rashes/lesions/lacerations noted. Extremities: No lower extremity edema. Extremities exhibit normal range of motion. Extremities nontender. Neuro: Oriented X 3. Cranial nerve exam: II-XII are grossly intact No motor deficit. No sensory deficit. Reflexes normal. Course Course Course Narrative: OD respond to Narcan. Closed head injury, patient is awake, alert now, complaining of slight headache that was given Tylenol for with a negative CT scan and GCS of 15. Was seen and evaluated by care team in the emergency department will discharge with Narcan to take home. Medical Decision Making Differential Diagnosis Differential Diagnoses: The differential diagnosis associated with the presentation includes (Intracranial bleed, cervical spine injury, accidental overdose, depression, SI.) Lab Data MDM Lab Attestation statement: I reviewed the patient's lab results. Labs: Lab Results 10/21/22 Range/Units 10:09 Urine Opiates Screen POSITIVE H (Not Detect) Urine Fentanyl Screen POSITIVE H (Not Detect) Ur Barbiturates Screen Not Detected (Not Detect) Ur Phencyclidine Scrn Not Detected (Not Detect) Ur Amphetamines Screen Not Detected (Not Detect) U Benzodiazepines Scrn POSITIVE H (Not Detect) Urine Cocaine Screen Not Detected (Not Detect) U Marijuana (THC) Screen Not Detected (Not Detect) Independent Interpretation I performed an independent interpretation of an: CT Scan (Head and cervical spine: No acute intracranial pathology, no C-spine fracture or subluxation.) Radiology Impression Discussion of test interpretation with radiology: I have reviewed the radiologist's reading. Chronic Conditions Patient?s care impacted by: Other (Substance abuse.) Discharge Plan Discharge Clinical Impression: Drug overdose, Substance abuse, Closed head injury Patient Disposition: Home, Self-Care Instructions: Head Injury (ED), Adult Overdose (ED) Prescriptions: No Action albuterol sulfate [ProAir HFA] 90 mcg/actuation HFA aerosol inhaler 2 puff inhalation Q4-6H PRN (Reason: shortness of breath or wheezing) Qty: 8.5 0RF omeprazole 20 mg capsule,delayed release(DR/EC) 20 mg PO DAILY Qty: 30 2RF cyclobenzaprine 5 mg tablet 5 mg PO BID PRN (Reason: muscle spasm) Qty: 20 0RF lidocaine [Aspercreme (lidocaine)] 4 % adhesive patch,medicated 1 patch topical DAILY PRN (Reason: pain) Qty: 30 0RF sildenafil [Viagra] 25 mg tablet 25 mg PO DAILY PRN (Reason: sexual activity) Qty: 10 0RF Rx Instructions: administer 30 minutes to 4 hours before activity clonazepam 1 mg tablet 1 mg PO TID PRN fluoxetine 20 mg capsule 20 mg PO DAILY ibuprofen 400 mg tablet 400 mg PO TID Referrals: Jun Hartman MD [Primary Care Provider] - Interventions: Bennett-Suicide Risk Severity Scale Last Done: 10/21/22 08:32
[2022-10-21] MEDS: Naloxone HCl Nasal TAKE HOME 4 MG SPRAY NOSTRILALT (11:20)
[2022-10-21] MEDS: Acetaminophen 325 MG TABLET 650 MG PO (11:20)
== END 2022-10-21 11:34 | disposition home or self-care (01) ==
PROVIDERS: Emergency Provider Emergency Medicine; PCP Internal Medicine
DX: R40.4 Transient alteration of awareness (principal); T50.901A Poisoning by unspecified drugs, medicaments and biological substances, accidental (unintentional), initial encounter; F19.10 Other psychoactive substance abuse, uncomplicated; S09.90XA Unspecified injury of head, initial encounter; W17.89XA Other fall from one level to another, initial encounter; Y93.89 Activity, other specified; Y92.019 Unspecified place in single-family (private) house as the place of occurrence of the external cause; Y99.9 Unspecified external cause status; Z79.899 Other long term (current) drug therapy
CPT/HCPCS: 70450; 72125; 80307; 99284; 99285

== ENCOUNTER 2022-10-26 16:51 | Emergency (ER) | payer OTHER, SELFPAY ==
--- NOTE | ~2022-10-26 | XR_ITS ---
EXAMINATION: XR CHEST CLINICAL INFORMATION: Reason for Exam sob COMPARISON: Chest radiograph 10/25/2020 TECHNIQUE: 2 views of the chest FINDINGS: Patchy left basilar retrocardiac airspace opacities raising suspicion for infection or aspiration. No pneumothorax or pleural effusion. Normal cardiomediastinal silhouette. XR/XR chest 1V IMPRESSION: Patchy left basilar retrocardiac airspace opacities raising suspicion for infection or aspiration. Recommend follow-up radiographs to ensure resolution.
[2022-10-26 17:00] VITALS: BP 144/80; BP 160/90; PULSE 125; PULSE 126; RESP 16; TEMP 36.5; O2SAT 95; O2SAT 99; BMI 31.7
--- NOTE | 2022-10-26 17:07 | ED.OVERDOSE ---
HPI - Overdose General Chief Complaint: Overdose Stated Complaint: od Time Seen by Provider: 10/26/22 16:59 History of Present Illness HPI Narrative: Patient is a 37-year-old male positive heroin use. Has no suicidal homicidal ideation. No fever no chills no chest pain or shortness breath no nausea no vomiting. Patient is from home. Related Data Home Medications Medication Instructions Recorded Confirmed clonazepam 1 mg tablet 1 mg PO TID PRN 11/21/21 09/26/22 fluoxetine 20 mg capsule 20 mg PO DAILY 11/21/21 09/26/22 ibuprofen 400 mg tablet 400 mg PO TID 11/21/21 09/26/22 Previous Rx's Medication Instructions Recorded albuterol sulfate 90 mcg/actuation 2 puff inhalation Q4-6H PRN 06/11/22 aerosol inhaler (ProAir HFA) shortness of breath or wheezing #8.5 grams omeprazole 20 mg capsule,delayed 20 mg PO DAILY #30 caps 08/04/22 release lidocaine 4 % topical patch 1 patch topical DAILY PRN pain #30 09/26/22 (Aspercreme (lidocaine)) ea sildenafil 25 mg tablet (Viagra) 25 mg PO DAILY PRN sexual activity 09/26/22 #10 tabs cyclobenzaprine 5 mg tablet 5 mg PO BID PRN muscle spasm #20 10/14/22 tabs Allergies Allergy/AdvReac Type Severity Reaction Status Date / Time No Known Allergies Allergy Verified 09/26/22 14:17 [No Known Allergies*] Review of Systems Review of Systems: No fever no chills no coughing or congestion or worsening symptoms Yes all other systems are reviewed and are negative PMFSH Past Medical History Attestation statement: The following information was validated with the patient. Medical History Asthma Encounter to establish care Surgical History No pertinent past surgical history Family History Family History Mother Lung cancer Father COPD (chronic obstructive pulmonary disease) Social History Social History Housing: House Patient Tobacco Use Status: Never used Tobacco Smoked in Last 30 Days: No e-Cigarette/Vaping Use: Never Used Use of substances other than those prescribed or required for medical reasons: Yes Substance Use Type: Heroin Substance Use Frequency: Recent Binge Last Used Substance: Just Prior to Admission Any prior treatment program specific to substance use: Yes Advance Directives: No Advance Directives Information Provided: No service: No Current occupational status: unemployed Current occupational exposures/hazards: No Cognitive needs: No Hearing needs: No Vision needs: No Physical Exam Vital Signs: Vital Signs: Last Vital Signs Temp 98.0 F 10/26/22 18:16 Pulse 109 H 10/26/22 18:16 Resp 20 10/26/22 18:16 BP 125/79 10/26/22 18:16 Pulse Ox 94 10/26/22 18:16 O2 Del Method Room Air 10/26/22 18:16 BMI result Body Mass Index 31.7 Appearance: Alert. Oriented X3. No acute distress. Eyes: Pupils equal, round and reactive to light. ENT: Pharynx normal. Neck: Normal inspection. Neck supple. No lymph nodes noted. No crepitus CVS: Normal heart rate and rhythm. Pulses normal. Normal S1 and S2 Respiratory: No respiratory distress. Breath sounds normal. No Wheezing. No rales Abdomen: Soft and nontender. No rigidity. No distention. good BS x4 Skin: Skin warm and dry. Normal skin color. Normal skin turgor. Extremities: No lower extremity edema. Neurovascular intact to all extremities. No Lacerations. No Rash Neuro: Oriented X 3. No motor deficit. No sensory deficit. Moving all extermities. No slurred speech Medical Decision Making Medical Decision Making MDM Narrative: Patient well appearing no acute distress. Monitor in the emergency department for 2 hours. No signs of relapse. Chest x-ray showed no evidence of fracture from CPR. In no distress. Will discharge home. Will offer patient detox. Differential Diagnosis Overdose on heroin, rib fracture, pneumothorax Lab Data [facility] Lab Attestation statement: I reviewed the patient's lab results. Independent Interpretation I performed an independent interpretation of an: Plain X-Ray Interpretation: No pneumonia no pneumothorax no rib fracture Social Determinants Patient?s care significantly limited by Social Determinants of Health including: Inadequate housing, Low income and Alcoholism and drug addiction in family Discharge Plan Discharge Clinical Impression: Narcotic drug use Patient Disposition: Home, Self-Care Instructions: Opioid Use Disorder (ED) Prescriptions: No Action albuterol sulfate [ProAir HFA] 90 mcg/actuation HFA aerosol inhaler 2 puff inhalation Q4-6H PRN (Reason: shortness of breath or wheezing) Qty: 8.5 0RF omeprazole 20 mg capsule,delayed release(DR/EC) 20 mg PO DAILY Qty: 30 2RF cyclobenzaprine 5 mg tablet 5 mg PO BID PRN (Reason: muscle spasm) Qty: 20 0RF lidocaine [Aspercreme (lidocaine)] 4 % adhesive patch,medicated 1 patch topical DAILY PRN (Reason: pain) Qty: 30 0RF sildenafil [Viagra] 25 mg tablet 25 mg PO DAILY PRN (Reason: sexual activity) Qty: 10 0RF Rx Instructions: administer 30 minutes to 4 hours before activity clonazepam 1 mg tablet 1 mg PO TID PRN fluoxetine 20 mg capsule 20 mg PO DAILY ibuprofen 400 mg tablet 400 mg PO TID Referrals: Jun Hartman MD [Primary Care Provider] -
[2022-10-26 18:16] VITALS: BP 125/79; PULSE 109; RESP 20; TEMP 36.7; O2SAT 94
[2022-10-26] MEDS: Doxycycline Monohydrate 100 MG CAPSULE PO (19:01)
--- NOTE | 2022-10-26 19:04 | MHC.RECOVSUP ---
? Reason for consult: Recovery Support o Current location: ?ED6 o Identified substance use concern: JOSE LUIS? - Overdose - Support ? ?Intervention: o Community resources provided o Harm reduction discussion ? Plan: o Referral to [facility] o Follow up tomorrow ? ? Additional information:?Consult with provider before entry. personal health coach connected with pt and reviewed harm reduction strategies and options for treatment. Referral for [facility] through [facility] was submitted along with [facility]
[2022-10-26] MEDS: Naloxone HCl Nasal TAKE HOME 4 MG SPRAY NOSTRILALT (19:33)
--- NOTE | 2022-10-26 19:46 | PC.NURSE ---
per previous shift rn pt not changed over and belongings not secured by security. scrap charger aware. pt up for discharge prior to arrival of this rn. previous shift rn provided pt with discharge instructions. take home narcan given to pt. pt verbalized to this rn that father was supposed to pick pt up for ride home. pt states father will not be picking pt up as family member does not want pt to be in the home. this rn spoke with dr ortiz per md contact care team. this rn contacted care team who states that since this is pt residence pt legally can go into the home. this rn educated pt on this. pt called brother to pick him up.pt awaiting ride from brother in ed room 6. scrap charger aware
--- NOTE | 2022-10-26 20:39 | PC.NURSE ---
pt pt okay to discharge to waiting room to await ride from brother. dr ortiz and charge gang weigher aware. pt ambulatory at discharge
== END 2022-10-26 20:40 | disposition home or self-care (01) ==
PROVIDERS: Emergency Provider Emergency Medicine Emergency Medical Services; PCP Internal Medicine
DX: T40.1X1A Poisoning by heroin, accidental (unintentional), initial encounter (principal); Y92.9 Unspecified place or not applicable; Z71.51 Drug abuse counseling and surveillance of drug abuser; Z79.899 Other long term (current) drug therapy
CPT/HCPCS: 71045; 99283; 99284

== ENCOUNTER 2023-07-03 14:21 | Outpatient (AMB) | payer OTHER, SELFPAY ==
[2023-07-03 14:26] VITALS: BP 138/72; PULSE 90; O2SAT 97; BMI 34.0
--- NOTE | 2023-07-03 14:26 | A.OFFPC_ITS ---
Vital Signs 07/03/23 14:26 Height 5 ft 9 in Weight 230 lb 2 oz BMI 34.0 BP 138/72 Blood Pressure Location Lt brachial Position Sitting Pulse 90 Pulse Source Pulse Oximeter Pulse Oximetry (%) 97 Oxygen Delivery Method Room Air Intake Visit Reasons: follow up [employer] Required: No Accompanied by: Self / Same As Patient Allergies No Known Allergies [No Known Allergies*] Allergy (Verified 07/03/23 15:14) Medication List - Last Reconciled 07/03/23 by Jun Hartman MD albuterol sulfate 90 mcg/actuation (ProAir HFA) 2 puffs inhalation Q4-6H PRN clonazepam 1 mg PO TID PRN cyclobenzaprine 5 mg PO BID PRN fluoxetine 20 mg PO DAILY ibuprofen 400 mg PO TID lidocaine 4% (Aspercreme (lidocaine)) 1 patch topical DAILY PRN naltrexone microspheres ER (Vivitrol) 380 mg IM Q4W omeprazole 20 mg PO DAILY prednisone 20 mg PO DAILY 5 days sildenafil (Viagra) 25 mg PO DAILY PRN Tobacco use date assessed: 07/03/23 Dental Screening Dental Screen Date: 07/03/23 Did you have a dental visit in the last 12 months?: No Did you have a dental problem in the last 6 months where you did not have access to dental care?: No Was dental information given to patient?: No HPI follow up HPI Details Patient comes in today for his follow up visit He has been following up with our nurse practitioners since he switched over here from Dr. Sawant last year in October 2021 and this is the first time I am seeing patient today Relates (+) Hx of substance abuse and was last seen at the ER here at [facility] in October 2022 for heroin overdose He also was found to have a retorcardiac infiltrate on chest x-rays back then and was started empirically on oral Doxycycline x 7 days, which he states he took completely He is now on Vivitrol injections Q 28 to 30 days from [facility] in [facility] States that he has been experiencing a persistent ringing in both of his ears for the past week Notes that the ringing in his ears has been constant/persistent for the past 3 days and he is now unable to sleep much at night due to the ringing Is thinking that his symptoms may be related to (side effect) her Fluoxetine Rx He denies any ear pain or discharge; denies any recent cough or cold symptoms or sore throat He denies any fever, headaches or dizziness Denies any chest pains, no SOB No nausea/vomiting, no abdominal pain No change in bowel habits noted Adds that he has been experiencing increased pain over his lower back lately and would like to get some muscle relaxant Rx to help relieve his back symptoms States that he's had problems with his lower back for a while now [facility] Medical History (Updated 07/05/23 @ 18:20 by Jun Hartman MD) Obesity (BMI 30-39.9) Depression Anxiety GERD (gastroesophageal reflux disease) Substance abuse Asthma Surgical History No pertinent past surgical history Family History Mother Lung cancer Father COPD (chronic obstructive pulmonary disease) Social History Housing: House Patient Tobacco Use Status: Never used Tobacco e-Cigarette/Vaping Use: Never Used Substance Use Type: Heroin service: No Current occupational status: unemployed Current occupational exposures/hazards: No Cognitive needs: No Hearing needs: No Vision needs: No Questionnaire PHQ-9 Over the last 2 weeks, how often have you been bothered by any of the following problems? 1. Little interest or pleasure in doing things: more than half the days 2. Feeling down, depressed, or hopeless: more than half the days 3. Trouble falling or staying asleep, or sleeping too much: nearly every day 4. Feeling tired or having little energy: more than half the days 5. Poor appetite or overeating: more than half the days 6. Feeling bad about yourself - or that you are a failure or have let yourself or your family down: not at all 7. Trouble concentrating on things, such as reading the newspaper or watching television: several days 8. Moving or speaking so slowly that other people could have noticed. Or the opposite - being so fidgety or restless that you have been moving around a lot more than usual: more than half the days 9. Thoughts that you would be better off or of hurting yourself in some way: not at all Total score: 14 Depression Screening Interpretation: Positive Depression Screening Follow-up: Existing condition and In treatment Depression Screening Done: Yes 70264 - PHQ-9 Billing: Yes Source: Developed by Drs. Bear Gonzales, Marlin Hernandez, Dion Larson and colleagues, with an educational alisha from [employer] Thrive Questionnaire Date Thrive assessed: 07/03/23 I am a: Patient What is your living situation today?: I have a steady place to live Within the past 12 months, did the food you bought not last and you didn't have the money to get more?: Never true Within the past 12 months, did you worry whether your food would run out before you got money to buy more?: Never true Do you have trouble paying for medicines?: No Do you have trouble getting transportation to medical appointments?: No Do you have trouble paying your heating and electricity bill?: No Do you have trouble taking care of your child, family member or friend?: No Do you have trouble with day-to-day activities such as bathing, preparing meals, shopping, managing finances, etc.?: No Are you currently unemployed and looking for a job?: No Are you interested in more education?: No Please select the resources that you would like help with: None Currently or been in a relationship where the following occur: no concerns reported AUDIT C Alcohol Use Questionnaire (AUDIT-C) 1. How often do you have a drink containing alcohol?: Never 3. How often do you have six or more drinks on one occasion?: Never Total Score: 0 Score Reviewed/Action Taken: Yes ROGER-7 AMB Questionnaire ROGER-7 Date ROGER - 7 assessed: 07/03/23 Feeling nervous, anxious, or on edge: 0 = Not at all Not being able to stop or control worryin = Not at all Worrying too much about different things: 0 = Not at all Trouble relaxin = Not at all Being so restless that it is hard to sit still: 0 = Not at all Becoming easily annoyed or irritable: 0 = Not at all Feeling afraid as if something awful might happen: 0 = Not at all Total ROGER-7 score (0-4 normal; 5-9 mild; 10-14 moderate; 15-21 severe): 0 Source: Developed by Drs. Bear Gonzales, Marlin Hernandez, Dion Larson and colleagues, with an educational alisha from [employer] ROGER-7 Assessment Billing ROGER-7 Assessment Tool: ROGER-7 Assessment 15555 Review of Systems Const Denies chills, Denies fatigue, Denies fever(s) and Denies headache(s) ENT Denies dysphagia, Denies dizziness, Denies otalgia, Denies headache(s), Denies neck pain, Denies odynophagia, Reports tinnitus (in both ears - getting worse lately) and Denies sore throat Card Denies chest pain, Denies palpitations and Denies dyspnea Resp Denies cough and Denies dyspnea GI Denies abdominal pain, Denies constipation, Denies dysphagia, Denies heartburn, Denies diarrhea, Denies nausea, Denies odynophagia and Denies vomiting Denies dysuria and Denies nocturia Musc Reports back pain (over the lower back - chronic and increasing lately) and Denies neck pain Skin/Breast Denies rash Neuro Denies dizziness and Denies headache(s) Endo Denies fatigue and Denies palpitations Physical exam (Primary Care) Vital Signs: Last Vital Signs Pulse 90 07/03/23 14:26 BP 138/72 07/03/23 14:26 Pulse Ox 97 07/03/23 14:26 Oxygen Delivery Method Room Air 07/03/23 14:26 BMI result Body Mass Index 34.0 Tobacco/Smoking Status: Tobacco use Status Tobacco use date assessed 07/03/23 07/03/23 14:33 Patient Tobacco Use Status Never used Tobacco 07/03/23 14:33 e-Cigarette/Vaping Use Never Used 07/03/23 14:33 PHQ-9: PHQ-9 Score PHQ-9: Total score 14 07/03/23 15:16 Depression Screening Interpretation: Positive Depression Screening Follow-up: Existing condition and In treatment Thrive Assessment: Date of Thrive Assessment Date Thrive assessed 07/03/23 07/03/23 14:33 Currently or been in a relationship where the following occur: no concerns reported Const General: no acute distress and alert HENMT Ears: TM's normal bilaterally and EAC's normal Throat: Yes posterior oropharynx normal and Yes tonsils normal (no TP congestion) Neck Neck: Yes no lymphadenopathy and Yes supple Resp Auscultation: clear to auscultation bilaterally, no rales and no wheezes Cardio Rate: regular rate Rhythm: regular rhythm Heart sounds: no murmurs GI Palpation (GI): Soft to palpation and nontender Auscultation: normal bowel sounds Back/Spine/Pelvis Thoracic/Lumbar Spine: lumbar spinal tenderness Skin Rashes: no rashes Extrem General: Yes no clubbing, cyanosis or edema Assessment and Plan Assessment & Plan (1) Asthma: Code(s): J45.909 - Unspecified asthma, uncomplicated Qualifiers: Asthma severity: mild Asthma persistence: intermittent Asthma complication type: uncomplicated Qualified Code(s): J45.20 - Mild intermittent asthma, uncomplicated Plan: Stable lately Continue Albuterol HFA 1 to 2 inhalations Q 6 hours PRN (2) Tinnitus, bilateral: Code(s): H93.13 - Tinnitus, bilateral Plan: Unclear etiology at this time - advised that his ear exam in the office today is normal Will refer patient to ENT for further evaluation and management Have also advised patient to speak with his psychiatrist about his tinnitus possibly being a side effect of one of his psych meds but advised that this is unlikely as he has been on his current meds for a while now long before his tinnitus started up recently Will try him on oral Prednisone 20 mg QD x 5 days to see if this will help with his ear symptoms as we do not know at this time how soon it will be before ENT can get him in to see him (3) GERD (gastroesophageal reflux disease): Code(s): K21.9 - Gastro-esophageal reflux disease without esophagitis Qualifiers: Esophagitis presence: without esophagitis Qualified Code(s): K21.9 - Gastro-esophageal reflux disease without esophagitis Plan: Dietary restrictions reinforced Continue Omeprazole 20 mg QD (4) Low back pain: Code(s): M54.50 - Low back pain, unspecified Qualifiers: Chronicity: unspecified Back pain laterality: midline Sciatica presence: without sciatica Qualified Code(s): M54.50 - Low back pain, unspeci fied Plan: Patient reports experiencing recurrent low back pain for a while now Will send him for lumbar spine x-rays for further evaluation Will continue him for now on Cyclobenzaprine 5 mg TID PRN, Lidocaine patch 4% QD PRN and Ibuprofen 400 mg TID PRN with food Reinforced activity and weight-lifting restrictions to avoid aggravating his low back pain (5) Substance abuse: Comment: heroin Code(s): F19.10 - Other psychoactive substance abuse, uncomplicated Plan: Continue Vivitrol injections 380 mg IM every 4 weeks Follow up with [facility] as scheduled (6) Erectile dysfunction: Code(s): N52.9 - Male erectile dysfunction, unspecified Qualifiers: Erectile dysfunction type: unspecified Qualified Code(s): N52.9 - Male erectile dysfunction, unspecified Plan: Continue Sildenafil 25 mg PRN (7) Anxiety: Code(s): F41.9 - Anxiety disorder, unspecified Plan: Continue Clonazepam 1 mg TID PRN - Rx is being prescribed and managed by psychiatry (8) Depression: Code(s): F32.A - Depression, unspecified Qualifiers: Depression Type: major depressive disorder Major depression recurrence: recurrent Active/Remission status: currently active Major depression episode severity: unspecified Qualified Code(s): F33.9 - Major depressive disorder, recurrent, unspecified Plan: Continue Fluoxetine 20 mg QD Follow up with psychiatry as scheduled (9) Obesity (BMI 30-39.9): Code(s): E66.9 - Obesity, unspecified Plan: Reinforced diet/exercise as tolerated/lose weight Orders: Orders XR lumbar spine 2-3V 07/03/23 M54.50 - Low back pain, unspecified Referrals Ear/Nose/Throat Referral H93.13 - Tinnitus, bilateral Medications: New prednisone 20 mg PO DAILY 5 days 5 tabs 0RF Refilled cyclobenzaprine 5 mg PO BID PRN 20 tabs 0RF muscle spasm M54.9 - Dorsalgia, unspecified Coding Level of Care Code Est Pt Level 4 (71262) Diagnoses Mild intermittent asthma without complication J45.20 Asthma severity: mild Asthma persistence: intermittent Asthma complication type: uncomplicated Tinnitus, bilateral H93.13 Gastroesophageal reflux disease without esophagitis K21.9 Esophagitis presence: without esophagitis Midline low back pain without sciatica, unspecified chronicity M54.50 Chronicity: unspecified Back pain laterality: midline Sciatica presence: without sciatica Substance abuse F19.10 Erectile dysfunction, unspecified erectile dysfunction type N52.9 Erectile dysfunction type: unspecified Anxiety F41.9 Episode of recurrent major depressive disorder, unspecified depression episode severity F33.9 Depression Type: major depressive disorder Major depression recurrence: recurrent Active/Remission status: currently active Major depression episode severity: unspecified Obesity (BMI 30-39.9) E66.9 Additional Codes ROGER-7 Assessment Billing - ROGER-7 Assessment Tool: ROGER-7 Assessment [id number] ([id number])
== END 2023-07-03 15:26 | disposition home or self-care (01) ==
PROVIDERS: PCP Internal Medicine; Visit Provider Internal Medicine
DX: J45.20 Mild intermittent asthma, uncomplicated (principal); F19.10 Other psychoactive substance abuse, uncomplicated; F33.9 Major depressive disorder, recurrent, unspecified; H93.13 Tinnitus, bilateral; K21.9 Gastro-esophageal reflux disease without esophagitis; M54.50 Low back pain, unspecified; N52.9 Male erectile dysfunction, unspecified; F41.9 Anxiety disorder, unspecified; E66.9 Obesity, unspecified
CPT/HCPCS: 99214

== ENCOUNTER 2023-11-16 15:59 | Outpatient (AMB) | payer OTHER, SELFPAY ==
--- NOTE | 2023-11-16 16:04 | MHC.PC.OV ---
Vital Signs 11/16/23 16:06 Height 5 ft 9 in Weight 241 lb 6 oz BMI 35.6 BP 110/62 Blood Pressure Location Lt brachial Position Sitting Pulse 103 H Pulse Source Pulse Oximeter Pulse Oximetry (%) 95 Oxygen Delivery Method Room Air Intake Visit Reasons: Allergies/ med refill Intake Note: Patient is here to follow up on Allergies and med refill. Dedicated Owner Operator Required: No Chemical Laboratory Scientist: Not Required per policy Accompanied by: Self / Same As Patient Allergies No Known Allergies [No Known Allergies*] Allergy (Verified 11/16/23 16:41) Medication List - Last Reconciled 11/16/23 by Jun Hartman MD albuterol sulfate 90 mcg/actuation (ProAir HFA) 2 puffs inhalation Q4-6H PRN clonazepam 1 mg PO TID PRN cyclobenzaprine 5 mg PO BID PRN fluoxetine 40 mg PO DAILY ibuprofen 400 mg PO TID lidocaine 4% (Aspercreme (lidocaine)) 1 patch topical DAILY PRN naltrexone microspheres ER (Vivitrol) 380 mg IM Q4W omeprazole 20 mg PO DAILY 90 days sildenafil (Viagra) 25 mg PO DAILY PRN Tobacco use date assessed: 11/16/23 Dental Screening Dental Screen Date: 11/16/23 Did you have a dental visit in the last 12 months?: No Did you have a dental problem in the last 6 months where you did not have access to dental care?: No Was dental information given to patient?: No HPI Allergies/ med refill HPI Details Patient comes in today for his follow up visit States that he currently feels okay He denies any headaches or dizziness Denies any chest pains, no SOB No nausea/vomiting, no abdominal pain No change in bowel habits noted He still has on and off pain over his lower back but states that his muscle relaxers help a lot He is also still on Vivitrol injections Q 28 to 30 days from [facility] in [place] and states that he has been doing well on this with no relapse He also continues to follow up with his psychiatrist regularly and he remains on Fluoxetine 40 mg QD and Clonazepam 1 mg TID PRN [facility] Medical History (Updated 11/17/23 @ 04:56 by Jun Hartman MD) Obesity (BMI 30-39.9) Depression Anxiety GERD (gastroesophageal reflux disease) Substance abuse Asthma Surgical History No pertinent past surgical history Family History Mother Lung cancer Father COPD (chronic obstructive pulmonary disease) Social History Housing: House Patient Tobacco Use Status: Never used Tobacco e-Cigarette/Vaping Use: Never Used Second Hand Smoke Exposure: No Substance Use Type: Heroin service: No Current occupational status: unemployed Current occupational exposures/hazards: No Cognitive needs: No Hearing needs: No Vision needs: No Questionnaire PHQ-9 Over the last 2 weeks, how often have you been bothered by any of the following problems? 1. Little interest or pleasure in doing things: not at all 2. Feeling down, depressed, or hopeless: not at all 3. Trouble falling or staying asleep, or sleeping too much: not at all 4. Feeling tired or having little energy: not at all 5. Poor appetite or overeating: not at all 6. Feeling bad about yourself - or that you are a failure or have let yourself or your family down: not at all 7. Trouble concentrating on things, such as reading the newspaper or watching television: not at all 8. Moving or speaking so slowly that other people could have noticed. Or the opposite - being so fidgety or restless that you have been moving around a lot more than usual: not at all 9. Thoughts that you would be better off or of hurting yourself in some way: not at all Total score: 0 Depression Screening Interpretation: Negative (is on Rx for his depression/mood disorder) Depression Screening Done: Yes Source: Developed by Drs. Bear Gonzales, Marlin Hernandez, Dion Larson and colleagues, with an educational alisha from [employer]. Thrive Questionnaire Date Thrive assessed: 11/16/23 I am a: Patient What is your living situation today?: I have a steady place to live Within the past 12 months, did the food you bought not last and you didn't have the money to get more?: Never true Within the past 12 months, did you worry whether your food would run out before you got money to buy more?: Never true Do you have trouble paying for medicines?: No Do you have trouble getting transportation to medical appointments?: No Do you have trouble paying your heating and electricity bill?: No Do you have trouble taking care of your child, family member or friend?: No Do you have trouble with day-to-day activities such as bathing, preparing meals, shopping, managing finances, etc.?: No Are you currently unemployed and looking for a job?: No Are you interested in more education?: No Currently or been in a relationship where the following occur: no concerns reported THRIVE Score: 0 AUDIT C Alcohol Use Questionnaire (AUDIT-C) 1. How often do you have a drink containing alcohol?: Never 3. How often do you have six or more drinks on one occasion?: Never Total Score: 0 Score Reviewed/Action Taken: Yes ROGER-7 AMB Questionnaire ROGER-7 Date ROGER - 7 assessed: 11/16/23 Feeling nervous, anxious, or on edge: 2 = More than half the days Not being able to stop or control worryin = Several days Worrying too much about different things: 1 = Several days Trouble relaxin = Nearly every day Being so restless that it is hard to sit still: 3 = Nearly every day Becoming easily annoyed or irritable: 2 = More than half the days Feeling afraid as if something awful might happen: 1 = Several days Total ROGER-7 score (0-4 normal; 5-9 mild; 10-14 moderate; 15-21 severe): 13 Source: Developed by Drs. Bear Gonzales, Marlin Hernandez, Dion Larson and colleagues, with an educational alisha from [employer]. Review of Systems Const Denies chills, Denies fatigue, Denies fever(s) and Denies headache(s) ENT Denies dysphagia, Denies dizziness, Denies otalgia, Denies headache(s), Denies neck pain, Denies odynophagia and Denies sore throat Card Denies chest pain, Denies palpitations and Denies dyspnea Resp Denies cough and Denies dyspnea GI Denies abdominal pain, Denies constipation, Denies dysphagia, Denies heartburn, Denies diarrhea, Denies nausea, Denies odynophagia and Denies vomiting Denies dysuria, Denies nocturia and Denies urinary frequency Musc Reports back pain (over his lower back - chronic) and Denies neck pain Skin/Breast Denies rash Neuro Denies dizziness and Denies headache(s) Psych Denies anxiety and Denies depression Endo Denies fatigue and Denies palpitations Physical exam (Primary Care) Vital Signs: Last Vital Signs Pulse 103 H 11/16/23 16:06 BP 110/62 11/16/23 16:06 Pulse Ox 95 11/16/23 16:06 Oxygen Delivery Method Room Air 11/16/23 16:06 BMI result Body Mass Index 35.6 Tobacco/Smoking Status: Tobacco use Status Tobacco use date assessed 11/16/23 11/16/23 16:12 Patient Tobacco Use Status Never used Tobacco 11/16/23 16:12 e-Cigarette/Vaping Use Never Used 11/16/23 16:12 PHQ-9: PHQ-9 Score PHQ-9: Total score 0 11/16/23 16:48 Depression Screening Interpretation: Negative (is on Rx for his depression/mood disorder) Thrive Assessment: Date of Thrive Assessment Date Thrive assessed 11/16/23 11/16/23 16:12 Currently or been in a relationship where the following occur: no concerns reported Const General: no acute distress and alert HENMT Ears: TM's normal bilaterally and EAC's normal Throat: Yes posterior oropharynx normal and Yes tonsils normal (no TP congestion) Neck Neck: Yes no lymphadenopathy and Yes supple Resp Auscultation: clear to auscultation bilaterally, no rales and no wheezes Cardio Rate: regular rate Rhythm: regular rhythm Heart sounds: no murmurs GI Palpation (GI): Soft to palpation and nontender Auscultation: normal bowel sounds Back/Spine/Pelvis Thoracic/Lumbar Spine: lumbar spinal tenderness Skin Rashes: no rashes Extrem General: Yes no clubbing, cyanosis or edema Assessment and Plan Assessment & Plan (1) Asthma: Code(s): J45.909 - Unspecified asthma, uncomplicated Qualifiers: Asthma severity: mild Asthma persistence: intermittent Asthma complication type: uncomplicated Qualified Code(s): J45.20 - Mild intermittent asthma, uncomplicated Plan: Stable lately Continue Albuterol HFA 1 to 2 inhalations Q 6 hours PRN (2) GERD (gastroesophageal reflux disease): Code(s): K21.9 - Gastro-esophageal reflux disease without esophagitis Qualifiers: Esophagitis presence: without esophagitis Qualified Code(s): K21.9 - Gastro-esophageal reflux disease without esophagitis Plan: Dietary restrictions reinforced Continue Omeprazole 20 mg QD (3) Renal insufficiency: Code(s): N28.9 - Disorder of kidney and ureter, unspecified Plan: He is advised that his serum creatinine and GFR on his last labs done back in September 2022 are both slightly depressed and are likely due to his acute issues at the time (he was still actively using illicit drugs then) but we should recheck them JOHNSON for follow up and if they are unchanged from previous, then will need further work ups He is instructed to try to get his follow up labs done JOHNSON - labs ordered today (4) Leukocytosis: Code(s): D72.829 - Elevated white blood cell count, unspecified Qualifiers: Leukocytosis type: unspecified Qualified Code(s): D72.829 - Elevated white blood cell count, unspecified Plan: He is advised that his WBC count was also elevated on his labs done a year ago in September 2022 Will recheck his CBC JOHNSON for follow up Discussed that if his WBC count remains elevated, then he will need further work ups and possibly a referral to hematology as well (5) Low back pain: Code(s): M54.50 - Low back pain, unspecified Qualifiers: Chronicity: unspecified Back pain laterality: midline Sciatica presence: without sciatica Qualified Code(s): M54.50 - Low back pain, unspecified Plan: Patient reports experiencing recurrent low back pain for years Reinforced activity and weight-lifting restrictions to avoid aggravating his low back pain He was sent for lumbar spine x-rays last year for further evaluation but he was never able to get this done Continue Cyclobenzaprine 5 mg TID PRN, Lidocaine patch 4% QD PRN and Ibuprofen 400 mg TID PRN with food (6) Substance abuse: Comment: heroin - is now doing well on Vivitrol injections Code(s): F19.10 - Other psychoactive substance abuse, uncomplicated Plan: Continue Vivitrol injections 380 mg IM every 4 weeks Follow up with [facility] as scheduled (7) Erectile dysfunction: Code(s): N52.9 - Male erectile dysfunction, unspecified Qualifiers: Erectile dysfunction type: unspecified Qualified Code(s): N52.9 - Male erectile dysfunction, unspecified Plan: Continue Sildenafil 25 mg PRN (8) Anxiety: Code(s): F41.9 - Anxiety disorder, unspecified Plan: Continue Clonazepam 1 mg TID PRN - Rx is being prescribed and managed by psychiatry (9) Depression: Code(s): F32.A - Depression, unspecified Qualifiers: Depression Type: major depressive disorder Major depression recurrence: recurrent Active/Remission status: currently active Major depression episode severity: unspecified Qualified Code(s): F33.9 - Major depressive disorder, recurrent, unspecified Plan: Continue Fluoxetine 40 mg QD Follow up with psychiatry as scheduled (10) Obesity (BMI 30-39.9): Code(s): E66.9 - Obesity, unspecified Plan: Reinforced diet/exercise as tolerated/lose weight Plan Follow up in 4 months Orders: Orders Complete Blood Count Auto Diff 11/16/23 D64.9 - Anemia, unspecified, N28.9 - Disorder of kidney and ureter, unspecified Comprehensive [place]. Panel Fast 11/16/23 E78.00 - Pure hypercholesterolemia, unspecified, N28.9 - Disorder of kidney and ureter, unspecified Lipid Panel 11/16/23 E78.00 - Pure hypercholesterolemia, unspecified, N28.9 - Disorder of kidney and ureter, unspecified TSH reflex Free T4 11/16/23 E78.00 - Pure hypercholesterolemia, unspecified, N28.9 - Disorder of kidney and ureter, unspecified Vitamin D 25-OH Total 11/16/23 E55.9 - Vitamin D deficiency, unspecified, N28.9 - Disorder of kidney and ureter, unspecified UA CC w/rflx Micro + Cult 11/16/23 N28.9 - Disorder of kidney and ureter, unspecified, R30.0 - Dysuria Coding Level of Care Code Est Pt Level 4 (15672) Diagnoses Mild intermittent asthma without complication J45.20 Asthma severity: mild Asthma persistence: intermittent Asthma complication type: uncomplicated Gastroesophageal reflux disease without esophagitis K21.9 Esophagitis presence: without esophagitis Renal insufficiency N28.9 Leukocytosis, unspecified type D72.829 Leukocytosis type: unspecified Midline low back pain without sciatica, unspecified chronicity M54.50 Chronicity: unspecified Back pain laterality: midline Sciatica presence: without sciatica Substance abuse F19.10 Erectile dysfunction, unspecified erectile dysfunction type N52.9 Erectile dysfunction type: unspecified Anxiety F41.9 Episode of recurrent major depressive disorder, unspecified depression episode severity F33.9 Depression Type: major depressive disorder Major depression recurrence: recurrent Active/Remission status: currently active Major depression episode severity: unspecified Obesity (BMI 30-39.9) E66.9
[2023-11-16 16:06] VITALS: BP 110/62; PULSE 103; O2SAT 95; BMI 35.6
== END 2023-11-16 16:59 | disposition home or self-care (01) ==
PROVIDERS: PCP Internal Medicine; Visit Provider Internal Medicine
DX: J45.20 Mild intermittent asthma, uncomplicated (principal); K21.9 Gastro-esophageal reflux disease without esophagitis; N28.9 Disorder of kidney and ureter, unspecified; D72.829 Elevated white blood cell count, unspecified; M54.50 Low back pain, unspecified; N52.9 Male erectile dysfunction, unspecified; F41.9 Anxiety disorder, unspecified
CPT/HCPCS: 99214

== ENCOUNTER 2024-07-22 15:43 | Outpatient (AMB) | payer OTHER, SELFPAY ==
[2024-07-22 15:56] VITALS: BP 100/80; PULSE 68; O2SAT 95; BMI 31.6
--- NOTE | 2024-07-22 15:56 | MHC.PC.OV ---
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 Accompanied by: Self / Same As Patient Allergies No Known Allergies [No Known Allergies*] Allergy (Verified 07/22/24 16:22) Medication List - Last Reconciled 07/22/24 by Jun Hartman MD albuterol sulfate 90 mcg/actuation (ProAir HFA) 2 puffs inhalation Q4-6H PRN clonazepam 1 mg PO TID PRN cyclobenzaprine 5 mg PO BID PRN fluoxetine 40 mg PO DAILY ibuprofen 400 mg PO TID lidocaine 4% (Aspercreme (lidocaine)) 1 patch topical DAILY PRN naltrexone microspheres ER (Vivitrol) 380 mg IM Q4W omeprazole 20 mg PO DAILY 90 days sildenafil (Viagra) 25 mg PO DAILY PRN Tobacco use date assessed: 07/22/24 Dental Screening Dental Screen Date: 07/22/24 Did you have a dental visit in the last 12 months?: No Did you have a dental problem in the last 6 months where you did not have access to dental care?: No Was dental information given to patient?: No HPI 4mof\u HPI Details Patient comes in today for his follow up visit - he has not been back since October 2023 States that he currently feels okay He denies any headaches or dizziness Denies any chest pains, no shortness of breath No nausea/vomiting, no abdominal pain No change in bowel habits noted He has not been able to get his previously ordered labs done yet [facility] Medical History Obesity (BMI 30-39.9) Depression Anxiety GERD (gastroesophageal reflux disease) Substance abuse Asthma Surgical History No pertinent past surgical history Family History Mother Lung cancer Father COPD (chronic obstructive pulmonary disease) Social History Housing: House Patient Tobacco Use Status: Never used Tobacco e-Cigarette/Vaping Use: Never Used Second Hand Smoke Exposure: No Substance Use Type: Heroin service: No Current occupational status: unemployed Current occupational exposures/hazards: No Cognitive needs: No Hearing needs: No Vision needs: No Questionnaire PHQ-9 Over the last 2 weeks, how often have you been bothered by any of the following problems? 1. Little interest or pleasure in doing things: not at all 2. Feeling down, depressed, or hopeless: not at all 3. Trouble falling or staying asleep, or sleeping too much: not at all 4. Feeling tired or having little energy: not at all 5. Poor appetite or overeating: not at all 6. Feeling bad about yourself - or that you are a failure or have let yourself or your family down: not at all 7. Trouble concentrating on things, such as reading the newspaper or watching television: not at all 8. Moving or speaking so slowly that other people could have noticed. Or the opposite - being so fidgety or restless that you have been moving around a lot more than usual: not at all 9. Thoughts that you would be better off or of hurting yourself in some way: not at all Total score: 0 Depression Screening Interpretation: Negative (is on Rx for his depression/mood disorder) Depression Screening Done: Yes 59603 - PHQ-9 Billing: Yes Source: Developed by Drs. Bear Gonzales, Marlin Hernandez, Dion Larson and colleagues, with an educational alisha from [employer] Thrive Questionnaire Date Thrive assessed: 07/22/24 I am a: Patient What is your living situation today?: I have a steady place to live Within the past 12 months, did the food you bought not last and you didn't have the money to get more?: Never true Within the past 12 months, did you worry whether your food would run out before you got money to buy more?: Never true Do you have trouble paying for medicines?: No Do you have trouble getting transportation to medical appointments?: No Do you have trouble paying your heating and electricity bill?: No Do you have trouble taking care of your child, family member or friend?: No Do you have trouble with day-to-day activities such as bathing, preparing meals, shopping, managing finances, etc.?: No Are you currently unemployed and looking for a job?: No Are you interested in more education?: No Please select the resources that you would like help with: None Currently or been in a relationship where the following occur: No concerns reported THRIVE Score: 0 AUDIT C Alcohol Use Questionnaire (AUDIT-C) 1. How often do you have a drink containing alcohol?: Never 3. How often do you have six or more drinks on one occasion?: Never Total Score: 0 Score Reviewed/Action Taken: Yes ROGER-7 AMB Questionnaire ROGER-7 Date ROGER - 7 assessed: 07/22/24 Feeling nervous, anxious, or on edge: 2 = More than half the days Not being able to stop or control worryin = Several days Worrying too much about different things: 1 = Several days Trouble relaxin = Nearly every day Being so restless that it is hard to sit still: 3 = Nearly every day Becoming easily annoyed or irritable: 2 = More than half the days Feeling afraid as if something awful might happen: 1 = Several days Total ROGER-7 score (0-4 normal; 5-9 mild; 10-14 moderate; 15-21 severe): 13 Source: Developed by Drs. Bear Gonzales, Marlin Hernandez, Dion Larson and colleagues, with an educational alisha from [employer] Review of Systems Const Denies chills, Denies fatigue, Denies fever(s) and Denies headache(s) ENT Denies dysphagia, Denies dizziness, Denies otalgia, Denies headache(s), Denies neck pain, Denies odynophagia and Denies sore throat Card Denies chest pain, Denies irregular heart rhythm, Denies palpitations and Denies dyspnea Resp Denies chest congestion, Denies cough and Denies dyspnea GI Denies abdominal pain, Denies constipation, Denies dysphagia, Denies heartburn, Denies diarrhea, Denies nausea, Denies odynophagia and Denies vomiting Denies difficulty urinating, Denies dysuria and Denies urinary frequency Musc Reports back pain (over the lower back), Denies arthralgias and Denies neck pain Skin/Breast Denies rash Neuro Denies dizziness, Denies headache(s) and Denies paresthesias Endo Denies fatigue and Denies palpitations Physical exam (Primary Care) Vital Signs: Last Vital Signs Pulse 68 07/22/24 15:56 BP 100/80 07/22/24 15:56 Pulse Ox 95 07/22/24 15:56 Oxygen Delivery Method Room Air 07/22/24 15:56 BMI result Body Mass Index 31.6 Tobacco/Smoking Status: Tobacco use Status Tobacco use date assessed 07/22/24 07/22/24 16:05 Patient Tobacco Use Status Never used Tobacco 07/22/24 16:05 e-Cigarette/Vaping Use Never Used 07/22/24 16:05 PHQ-9: PHQ-9 Score PHQ-9: Total score 0 07/24/24 04:30 Depression Screening Interpretation: Negative (is on Rx for his depression/mood disorder) Thrive Assessment: Date of Thrive Assessment Date Thrive assessed 07/22/24 07/22/24 16:05 Currently or been in a relationship where the following occur: No concerns reported Const General: no acute distress and alert HENMT Ears: TM's normal bilaterally and EAC's normal Throat: Yes posterior oropharynx normal and Yes tonsils normal (no TP congestion) Neck Neck: Yes supple and No lymphadenopathy Thyroid: Thyroid normal Resp Auscultation: clear to auscultation bilaterally, no rales and no wheezes Cardio Rate: regular rate Rhythm: regular rhythm Heart sounds: no murmurs GI Palpation (GI): Soft to palpation and nontender Auscultation: normal bowel sounds General: Yes no CVA tenderness Back/Spine/Pelvis Back: no CVA tenderness Thoracic/Lumbar Spine: lumbar spinal tenderness Skin Rashes: no rashes Extrem General: Yes no clubbing, cyanosis or edema Coding Level of Care Code Est Pt Level 4 (42701) Diagnoses Mild intermittent asthma without complication J45.20 Asthma complication type: uncomplicated Asthma persistence: intermittent Asthma severity: mild Gastroesophageal reflux disease without esophagitis K21.9 Esophagitis presence: without esophagitis Renal insufficiency N28.9 Leukocytosis, unspecified type D72.829 Leukocytosis type: unspecified Midline low back pain without sciatica, unspecified chronicity M54.50 Back pain laterality: midline Chronicity: unspecified Sciatica presence: without sciatica Substance abuse F19.10 Erectile dysfunction, unspecified erectile dysfunction type N52.9 Erectile dysfunction type: unspecified Anxiety F41.9 Episode of recurrent major depressive disorder, unspecified depression episode severity F33.9 Active/Remission status: currently active Depression Type: major depressive disorder Major depression episode severity: unspecified Major depression recurrence: recurrent Obesity (BMI 30-39.9) E66.9 Additional Codes PHQ-9 - 10802 - PHQ-9 Billing: Yes ([id number]) Assessment & Plan Assessment & Plan (1) Asthma: Code(s): J45.909 - Unspecified asthma, uncomplicated Category: Medical Qualifiers: Asthma complication type: uncomplicated Asthma persistence: intermittent Asthma severity: mild Qualified Code(s): J45.20 - Mild intermittent asthma, uncomplicated Plan: Stable/controlled lately Continue Albuterol HFA 1 to 2 inhalations Q 6 hours PRN (2) GERD (gastroesophageal reflux disease): Code(s): K21.9 - Gastro-esophageal reflux disease without esophagitis Category: Medical Qualifiers: Esophagitis presence: without esophagitis Qualified Code(s): K21.9 - Gastro-esophageal reflux disease without esophagitis Plan: Dietary restrictions reinforced Continue Omeprazole 20 mg QD (3) Renal insufficiency: Code(s): N28.9 - Disorder of kidney and ureter, unspecified Category: Medical Plan: His serum creatinine and GFR were both slightly compromised when he last had his labs done in September 2022 - were likely due to his acute issues at the time (he was still actively using illicit drugs then) Have advised patient that we should get these rechecked JOHNSON and if they are unchanged from previous, then he will need further work ups We have ordered labs for his to do previously but he still was not able to get them done He is instructed to try to get his follow up labs done JOHNSON - labs ordered again today (4) Leukocytosis: Code(s): D72.829 - Elevated white blood cell count, unspecified Category: Medical Qualifiers: Leukocytosis type: unspecified Qualified Code(s): D72.829 - Elevated white blood cell count, unspecified Plan: He is advised again that his WBC count was also elevated on his labs done over a year ago in September 2022 Will recheck his CBC JOHNSON for follow up Discussed that if his WBC count remains elevated, then he will need further work ups and possibly a referral to hematology as well (5) Low back pain: Code(s): M54.50 - Low back pain, unspecified Category: Medical Qualifiers: Back pain laterality: midline Chronicity: unspecified Sciatica presence: without sciatica Qualified Code(s): M54.50 - Low back pain, unspecified Plan: Patient reports experiencing recurrent low back pain for years Reinforced activity and weight-lifting restrictions to avoid aggravating his low back pain He was sent for lumbar spine x-rays last year for further evaluation but he was never able to get this done Continue Cyclobenzaprine 5 mg TID PRN, Lidocaine patch 4% QD PRN and Ibuprofen 400 mg TID PRN with food (6) Substance abuse: Comment: heroin - is now doing well on Vivitrol injections Code(s): F19.10 - Other psychoactive substance abuse, uncomplicated Category: Medical Plan: Continue Vivitrol injections 380 mg IM every 4 weeks Follow up with [facility] as scheduled (7) Erectile dysfunction: Code(s): N52.9 - Male erectile dysfunction, unspecified Category: Medical Qualifiers: Erectile dysfunction type: unspecified Qualified Code(s): N52.9 - Male erectile dysfunction, unspecified Plan: Continue Sildenafil 25 mg PRN (8) Anxiety: Code(s): F41.9 - Anxiety disorder, unspecified Category: Medical Plan: Continue Clonazepam 1 mg TID PRN - his Rx was being prescribed and managed by psychiatry at [facility], where he has been going for years but states that [facility] recently closed their practice a few months ago and he is now in the process of looking for and transferring over to a new psychiatrist States that he is now on a waiting list to see a psychiatrist or psychiatric prescriber and just needs to help refill his prescriptions until he can get established with another provider (9) Depression: Code(s): F32.A - Depression, unspecified Category: Medical Qualifiers: Active/Remission status: currently active Depression Type: major depressive disorder Major depression episode severity: unspecified Major depression recurrence: recurrent Qualified Code(s): F33.9 - Major depressive disorder, recurrent, unspecified Plan: Continue Fluoxetine 40 mg QD His previous psychiatrist at [facility] had their practice closed and he is now on a waiting list to see another psychiatrist or prescriber and needs us to refill his prescriptions in the meantime States that he currently still has enough for a while and will call back when he needs his Rx refilled (10) Obesity (BMI 30-39.9): Code(s): E66.9 - Obesity, unspecified Category: Medical Plan: Reinforce diet/exercise as tolerated/lose weight Plan Follow up in 4 months Orders: Orders Complete Blood Count Auto Diff 07/22/24 D72.829 - Elevated white blood cell count, unspecified Lipid Panel 07/22/24 E78.00 - Pure hypercholesterolemia, unspecified TSH reflex Free T4 07/22/24 E78.00 - Pure hypercholesterolemia, unspecified Comprehensive [place]. Panel Fast 07/22/24 E78.00 - Pure hypercholesterolemia, unspecified UA CC w/rflx Micro + Cult 07/22/24 R30.0 - Dysuria Vitamin D 25-OH Total 07/22/24 E55.9 - Vitamin D deficiency, unspecified
== END 2024-07-22 16:35 | disposition home or self-care (01) ==
PROVIDERS: PCP Internal Medicine; Visit Provider Internal Medicine
DX: J45.20 Mild intermittent asthma, uncomplicated (principal); F19.10 Other psychoactive substance abuse, uncomplicated; F33.9 Major depressive disorder, recurrent, unspecified; K21.9 Gastro-esophageal reflux disease without esophagitis; N28.9 Disorder of kidney and ureter, unspecified; D72.829 Elevated white blood cell count, unspecified; M54.50 Low back pain, unspecified; N52.9 Male erectile dysfunction, unspecified; F41.9 Anxiety disorder, unspecified; E66.9 Obesity, unspecified

== ENCOUNTER → 2024-07-22 15:43 | Outpatient (BNVA) | payer OTHER, SELFPAY | PROVIDERS: PCP Internal Medicine; Visit Provider Internal Medicine | DX: J45.20 Mild intermittent asthma, uncomplicated (principal); K21.9 Gastro-esophageal reflux disease without esophagitis; N28.9 Disorder of kidney and ureter, unspecified; D72.829 Elevated white blood cell count, unspecified; M54.50 Low back pain, unspecified; F19.10 Other psychoactive substance abuse, uncomplicated; N52.9 Male erectile dysfunction, unspecified; F41.9 Anxiety disorder, unspecified; F33.9 Major depressive disorder, recurrent, unspecified; E66.9 Obesity, unspecified; Z68.31 Body mass index [BMI] 31.0-31.9, adult; Z71.3 Dietary counseling and surveillance | CPT/HCPCS: 96127; 99212 ==

== ENCOUNTER 2024-07-25 10:39 | Outpatient (REF) | payer OTHER, SELFPAY ==
[2024-07-25 10:50] LABS: MANUAL DIFF FLAG NO
[2024-07-25 11:09] LABS: Basophils Absolute Auto 0.1 X10*3/uL (0.0-0.2); Basophils Percent Auto 0.8 % (0-2); Eosinophils Absolute Auto 0.6 X10*3/uL (0.0-0.4); Eosinophils Percent Auto 7.2 % (0-4); Hematocrit 44.6 % (42.0-52.0); Hemoglobin 15.1 g/dl (14.0-18.0); Imm Gran Abs Auto 0.05 X10*3/uL (0.00-0.03); Imm Gran Pct Auto 0.7 % (0.0-0.4); Lymphocytes Absolute Auto 2.2 X10*3/uL (1.2-4.9); Lymphocytes Percent Auto 29.3 % (20-40); Mean Corpuscular HGB Conc 33.9 g/dl (31.0-36.0); Mean Corpuscular Hemoglobin 29.8 pg (27.0-33.0); Mean Platelet Volume 10.1 fL (9.4-12.4); Monocytes Absolute Auto 0.5 X10*3/uL (0.1-1.2); Monocytes Percent Auto 6.4 % (2-11); Neutrophils Absolute Auto 4.2 x10*3/uL (2.0-8.3); Neutrophils Percent Auto 55.6 % (45-73); Platelet Count 261 X10*3/uL (160-400); Red Blood Count 5.07 X10*6/uL (4.60-5.80); Red Cell Distribution Width 12.5 % (11.0-16.0); White Blood Count 7.6 X10*3/uL (4.8-10.8)
[2024-07-25 11:16] LABS: Appearance Urine Clear; Color Urine Yellow; Glucose Urine UA Negative (Negative); Leukocyte Esterase Urine Trace (Negative); Nitrite Urine Negative (Negative); UMIC TRIGGER UACC YES; Urine Blood Negative (Negative); Urine Ketones Negative (Negative); Urine Protein Negative (Neg-Trace)
[2024-07-25 11:23] LABS: Bacteria Urine None Seen (None Seen); Hyaline Casts Urine 0-2 /LPF (0-2); RBC Urine 0-2 /HPF (0-2); Squamous Epithelial Cell Urine 0-2 /HPF (0-2); WBC Urine 0-5 /HPF (0-5)
[2024-07-25 11:48] LABS: Alanine Aminotransferase 28 U/L (0-40); Albumin Level 3.9 g/dL (3.5-5.0); Alkaline Phosphatase 60 U/L (39-117); Anion Gap 9 (12-20); Aspartate Amino Transferase 30 U/L (5-37); Bilirubin Total 0.4 mg/dL (0.0-1.0); Blood Urea Nitrogen 14 mg/dL (9-16); Calcium 9.4 mg/dL (8.4-10.2); Carbon Dioxide 27 mmol/L (22-29); Chloride 108 mmol/L (96-108); Cholesterol 203 mg/dL (<200); Estimated Glomerular Filt Rate > 60; Glucose Fasting 95 mg/dL (60-99); HDL Cholesterol 55 mg/dL (>40); LDL Cholesterol Calculated 130 mg/dL (<100); Potassium 4.3 mmol/L (3.3-5.1); Sodium 140 mmol/L (135-145); Total Protein 6.6 g/dL (6.5-8.0); Triglycerides 94 mg/dL (<150)
[2024-07-25 11:54] LABS: TSH reflex Free T4 0.95 uIU/mL (0.32-4.0); Vitamin D 25-OH Total 23.1 ng/mL (>30)
== END 2024-07-25 10:40 | disposition home or self-care (01) ==
LOC: HO.LAB 10:39
PROVIDERS: PCP Internal Medicine; Visit Provider Internal Medicine
DX: D64.9 Anemia, unspecified (principal); N28.9 Disorder of kidney and ureter, unspecified; E78.00 Pure hypercholesterolemia, unspecified; E55.9 Vitamin D deficiency, unspecified; R30.0 Dysuria; D72.829 Elevated white blood cell count, unspecified
CPT/HCPCS: 36415; 80053; 80061; 81001; 82306; 84443; 85025

== ENCOUNTER 2024-11-25 09:57 | Outpatient (AMB) | payer SELFPAY ==
[2024-11-25 09:59] VITALS: BP 120/86; PULSE 73; O2SAT 97; BMI 30.6
--- NOTE | 2024-11-25 09:59 | MHC.PC.OV ---
Vital Signs 11/25/24 09:59 Height 5 ft 9 in Weight 207 lb 6 oz BMI 30.6 BP 120/86 Blood Pressure Location Lt brachial Position Sitting Pulse 73 Pulse Source Pulse Oximeter Pulse Oximetry (%) 97 Oxygen Delivery Method Room Air Intake Visit Reasons: asthma, leucocytosis, anxiety, GERD Pediatric Geneticist Required: No Accompanied by: Self / Same As Patient Allergies No Known Allergies [No Known Allergies*] Allergy (Verified 11/25/24 10:28) Medication List - Last Reconciled 11/25/24 by Jun Hartman MD albuterol sulfate 90 mcg/actuation (ProAir HFA) 2 puffs inhalation Q4-6H PRN clonazepam 1 mg PO TID PRN 30 days cyclobenzaprine 5 mg PO BID PRN fluoxetine 40 mg (2 x 20 mg) PO DAILY 90 days naltrexone microspheres ER (Vivitrol) 380 mg IM Q4W omeprazole 20 mg PO DAILY 90 days sildenafil (Viagra) 25 mg PO DAILY PRN Tobacco use date assessed: 11/25/24 Dental Screening Dental Screen Date: 11/25/24 Did you have a dental visit in the last 12 months?: No Did you have a dental problem in the last 6 months where you did not have access to dental care?: No Was dental information given to patient?: No HPI asthma, leucocytosis, anxiety, GERD HPI Details Patient comes in today for his follow up visit States that he feels okay He denies any headaches or dizziness Denies any chest pains, no SOB No nausea/vomiting, no abdominal pain No change in bowel habits noted States that he is currently still seeing a therapist with [facility] and is still on a wait list to see a psychiatric prescriber Will need his Clonazepam Rx refilled next week and states that he will call early next week for his refill [facility] Medical History (Updated 11/25/24 @ 11:57 by Jun Hartman MD) Vitamin D deficiency Mixed hyperlipidemia Obesity (BMI 30-39.9) Depression Anxiety GERD (gastroesophageal reflux disease) Substance abuse Asthma Surgical History No pertinent past surgical history Family History Mother Lung cancer Father COPD (chronic obstructive pulmonary disease) Social History Housing: House Patient Tobacco Use Status: Never used Tobacco e-Cigarette/Vaping Use: Never Used Second Hand Smoke Exposure: No Substance Use Type: Heroin service: No Current occupational status: unemployed Current occupational exposures/hazards: No Cognitive needs: No Hearing needs: No Vision needs: No Questionnaire PHQ-9 Over the last 2 weeks, how often have you been bothered by any of the following problems? 1. Little interest or pleasure in doing things: not at all 2. Feeling down, depressed, or hopeless: not at all 3. Trouble falling or staying asleep, or sleeping too much: not at all 4. Feeling tired or having little energy: not at all 5. Poor appetite or overeating: not at all 6. Feeling bad about yourself - or that you are a failure or have let yourself or your family down: not at all 7. Trouble concentrating on things, such as reading the newspaper or watching television: not at all 8. Moving or speaking so slowly that other people could have noticed. Or the opposite - being so fidgety or restless that you have been moving around a lot more than usual: not at all 9. Thoughts that you would be better off or of hurting yourself in some way: not at all Total score: 0 Depression Screening Interpretation: Negative (is on Rx for his depression/mood disorder) Depression Screening Done: Yes 75379 - PHQ-9 Billing: Yes Source: Developed by Drs. Bear Gonzales, Marlin Hernandez, Dion Larson and colleagues, with an educational alisha from [employer]. Thrive Questionnaire Date Thrive assessed: 11/25/24 I am a: Patient What is your living situation today?: I have a steady place to live Within the past 12 months, did the food you bought not last and you didn't have the money to get more?: Never true Within the past 12 months, did you worry whether your food would run out before you got money to buy more?: Never true Do you have trouble paying for medicines?: No Do you have trouble getting transportation to medical appointments?: No Do you have trouble paying your heating and electricity bill?: No Do you have trouble taking care of your child, family member or friend?: No Do you have trouble with day-to-day activities such as bathing, preparing meals, shopping, managing finances, etc.?: No Are you currently unemployed and looking for a job?: No Are you interested in more education?: No Please select the resources that you would like help with: None Currently or been in a relationship where the following occur: No concerns reported THRIVE Score: 0 AUDIT C Alcohol Use Questionnaire (AUDIT-C) 1. How often do you have a drink containing alcohol?: Never 3. How often do you have six or more drinks on one occasion?: Never Total Score: 0 Score Reviewed/Action Taken: Yes ROGER-7 AMB Questionnaire ROGER-7 Date ROGER - 7 assessed: 11/25/24 Feeling nervous, anxious, or on edge: 2 = More than half the days Not being able to stop or control worryin = Several days Worrying too much about different things: 1 = Several days Trouble relaxin = Nearly every day Being so restless that it is hard to sit still: 3 = Nearly every day Becoming easily annoyed or irritable: 2 = More than half the days Feeling afraid as if something awful might happen: 1 = Several days Total ROGER-7 score (0-4 normal; 5-9 mild; 10-14 moderate; 15-21 severe): 13 Source: Developed by Drs. Bear Gonzales, Marlin Hernandez, Dion Larson and colleagues, with an educational alisha from [employer]. Review of Systems Const Denies chills, Denies fatigue, Denies fever(s) and Denies headache(s) ENT Denies dysphagia, Denies dizziness, Denies otalgia, Denies headache(s), Denies neck pain, Denies odynophagia and Denies sore throat Card Denies chest pain, Denies irregular heart rhythm, Denies palpitations and Denies dyspnea Resp Denies chest congestion, Denies cough and Denies dyspnea GI Denies abdominal pain, Denies constipation, Denies dysphagia, Denies heartburn, Denies diarrhea, Denies nausea, Denies odynophagia and Denies vomiting Denies difficulty urinating, Denies dysuria and Denies urinary frequency Musc Reports back pain (over the lower back), Denies arthralgias and Denies neck pain Skin/Breast Denies rash Neuro Denies dizziness, Denies headache(s) and Denies paresthesias Psych Reports anxiety and Reports depression Endo Denies fatigue and Denies palpitations Physical exam (Primary Care) Vital Signs: Last Vital Signs Pulse 73 11/25/24 09:59 BP 120/86 11/25/24 09:59 Pulse Ox 97 11/25/24 09:59 Oxygen Delivery Method Room Air 11/25/24 09:59 BMI result Body Mass Index 30.6 Tobacco/Smoking Status: Tobacco use Status Tobacco use date assessed 11/25/24 11/25/24 10:06 Patient Tobacco Use Status Never used Tobacco 11/25/24 10:06 e-Cigarette/Vaping Use Never Used 11/25/24 10:06 PHQ-9: PHQ-9 Score PHQ-9: Total score 0 11/25/24 10:37 Depression Screening Interpretation: Negative (is on Rx for his depression/mood disorder) Thrive Assessment: Date of Thrive Assessment Date Thrive assessed 11/25/24 11/25/24 10:06 Currently or been in a relationship where the following occur: No concerns reported Const General: no acute distress and alert HENMT Ears: TM's normal bilaterally and EAC's normal Throat: Yes posterior oropharynx normal and Yes tonsils normal (no TP congestion) Neck Neck: Yes supple and No lymphadenopathy Thyroid: Thyroid normal Resp Auscultation: clear to auscultation bilaterally, no rales and no wheezes Cardio Rate: regular rate Rhythm: regular rhythm Heart sounds: no murmurs GI Palpation (GI): Soft to palpation and nontender Auscultation: normal bowel sounds General: Yes no CVA tenderness Back/Spine/Pelvis Back: no CVA tenderness Thoracic/Lumbar Spine: lumbar spinal tenderness Skin Rashes: no rashes Extrem General: Yes no clubbing, cyanosis or edema Results Reviewed Results Reviewed: Laboratory Tests 07/25/24 07/25/24 10:47 10:50 WBC 7.6 Hgb 15.1 Hct 44.6 Plt Count 261 Sodium 140 Potassium 4.3 Creatinine 0.88 Estimated GFR > 60 Fasting Glucose 95 Calcium 9.4 AST 30 ALT 28 Triglycerides 94 Cholesterol 203 H LDL Cholesterol, Calc 130 H HDL Cholesterol 55 25-OH Vitamin D Total 23.1 L TSH 0.95 Ur Specific [place] 1.010 Urine Protein Negative Urine Glucose (UA) Negative Urine Blood Negative Urine Nitrite Negative Ur Leukocyte Esterase Trace H Coding Level of Care Code Est Pt Level 4 (47024) Diagnoses Mild intermittent asthma without complication J45.20 Asthma severity: mild Asthma persistence: intermittent Asthma complication type: uncomplicated Gastroesophageal reflux disease without esophagitis K21.9 Esophagitis presence: without esophagitis Mixed hyperlipidemia E78.2 Vitamin D deficiency E55.9 Renal insufficiency N28.9 Leukocytosis, unspecified type D72.829 Leukocytosis type: unspecified Midline low back pain without sciatica, unspecified chronicity M54.50 Chronicity: unspecified Back pain laterality: midline Sciatica presence: without sciatica Substance abuse F19.10 Erectile dysfunction, unspecified erectile dysfunction type N52.9 Erectile dysfunction type: unspecified Anxiety F41.9 Episode of recurrent major depressive disorder, unspecified depression episode severity F33.9 Depression Type: major depressive disorder Major depression recurrence: recurrent Active/Remission status: currently active Major depression episode severity: unspecified Obesity (BMI 30-39.9) E66.9 Additional Codes PHQ-9 - 02222 - PHQ-9 Billing: Yes ([id number]) Assessment & Plan Assessment & Plan (1) Asthma: Code(s): J45.909 - Unspecified asthma, uncomplicated Category: Medical Qualifiers: Asthma severity: mild Asthma persistence: intermittent Asthma complication type: uncomplicated Qualified Code(s): J45.20 - Mild intermittent asthma, uncomplicated Plan: Controlled Continue Albuterol HFA 1 to 2 inhalations Q 6 hours PRN (2) GERD (gastroesophageal reflux disease): Code(s): K21.9 - Gastro-esophageal reflux disease without esophagitis Category: Medical Qualifiers: Esophagitis presence: without esophagitis Qualified Code(s): K21.9 - Gastro-esophageal reflux disease without esophagitis Plan: Dietary restrictions reinforced Continue Omeprazole 20 mg QD (3) Mixed hyperlipidemia: Code(s): E78.2 - Mixed hyperlipidemia Category: Medical Plan: Results of his labs done a few months ago reviewed and discussed with patient - he is advised that his cholesterol level, particularly his LDL cholesterol, have increased again from previous, with his LDL cholesterol now at 130 mg/dl Reinforced low cholesterol diet - patient admits to poor dietary choices over the past year and will try to work on getting this improved Will recheck his labs and fasting lipids in 4 months for follow up (4) Vitamin D deficiency: Code(s): E55.9 - Vitamin D deficiency, unspecified Category: Medical Plan: His Vitamin D level was low on his recent labs Will start him on Vitamin D3 2000 units QD (5) Renal insufficiency: Code(s): N28.9 - Disorder of kidney and ureter, unspecified Category: Medical Plan: Resolved His serum creatinine and GFR were both slightly compromised when he had his labs done in September 2022 (were likely due to his acute issues at the time and he was still actively using illicit drugs then) but these appear to have recovered as his numbers were back to normal on his labs done back in June 2024 (6) Leukocytosis: Code(s): D72.829 - Elevated white blood cell count, unspecified Category: Medical Qualifiers: Leukocytosis type: unspecified Qualified Code(s): D72.829 - Elevated white blood cell count, unspecified Plan: Resolved His WBC count was also elevated on his labs in September 2022 but have returned back to normal on his recent labs done in June 2024 (7) Low back pain: Code(s): M54.50 - Low back pain, unspecified Category: Medical Qualifiers: Chronicity: unspecified Back pain laterality: midline Sciatica presence: without sciatica Qualified Code(s): M54.50 - Low back pain, unspecified Plan: Patient reports experiencing recurrent low back pain for years Reinforced activity and weight-lifting restrictions to avoid aggravating his low back pain He was sent for lumbar spine x-rays a couple of years ago for further evaluation but he was never able to get this done Continue Cyclobenzaprine 5 mg TID PRN, Lidocaine patch 4% QD PRN and Ibuprofen 400 mg TID PRN with food (8) Substance abuse: Comment: heroin - is now doing well on Vivitrol injections Code(s): F19.10 - Other psychoactive substance abuse, uncomplicated Category: Medical Plan: Continue Vivitrol injections 380 mg IM every 4 weeks Follow up with [facility] as scheduled (9) Erectile dysfunction: Code(s): N52.9 - Male erectile dysfunction, unspecified Category: Medical Qualifiers: Erectile dysfunction type: unspecified Qualified Code(s): N52.9 - Male erectile dysfunction, unspecified Plan: Continue Sildenafil 25 mg PRN (10) Anxiety: Code(s): F41.9 - Anxiety disorder, unspecified Category: Medical Plan: Continue Clonazepam 1 mg TID PRN - his Rx was being prescribed and managed by psychiatry at [facility], where he has been going for years but [facility] closed their practice last year He was referred to [facility] and he is now seeing a therapist there regularly States that he is still on a waiting list to see a psychiatrist or psychiatric prescriber and will need us to continue to refill his prescriptions until he can get established with a prescriber (11) Depression: Code(s): F32.A - Depression, unspecified Category: Medical Qualifiers: Depression Type: major depressive disorder Major depression recurrence: recurrent Active/Remission status: currently active Major depression episode severity: unspecified Qualified Code(s): F33.9 - Major depressive disorder, recurrent, unspecified Plan: Continue Fluoxetine 40 mg QD His previous psychiatrist at [facility] had their practice closed and he is now on a waiting list to see another psychiatrist or prescriber and needs us to refill his prescriptions in the meantime He will call early next week for his Rx refill (12) Obesity (BMI 30-39.9): Code(s): E66.9 - Obesity, unspecified Category: Medical Plan: Reinforce diet/exercise as tolerated/lose weight Plan Follow up in 4 months Orders: Orders Complete Blood Count Auto Diff 4 Months D64.9 - Anemia, unspecified Lipid Panel 4 Months E78.00 - Pure hypercholesterolemia, unspecified TSH reflex Free T4 4 Months E78.00 - Pure hypercholesterolemia, unspecified Vitamin D 25-OH Total 4 Months E55.9 - Vitamin D deficiency, unspecified Comprehensive [place]. Panel Fast 4 Months E78.00 - Pure hypercholesterolemia, unspecified UA CC w/rflx Micro + Cult 4 Months R30.0 - Dysuria Medications: New cholecalciferol (vitamin D3) 50 mcg PO DAILY 90 days 90 caps 3RF E55.9 - Vitamin D deficiency, unspecified
== END 2024-11-25 10:41 | disposition home or self-care (01) ==
PROVIDERS: PCP Internal Medicine; Visit Provider Internal Medicine
DX: J45.20 Mild intermittent asthma, uncomplicated (principal); K21.9 Gastro-esophageal reflux disease without esophagitis; F19.10 Other psychoactive substance abuse, uncomplicated; E78.2 Mixed hyperlipidemia; E55.9 Vitamin D deficiency, unspecified; N28.9 Disorder of kidney and ureter, unspecified; D72.829 Elevated white blood cell count, unspecified; M54.50 Low back pain, unspecified; N52.9 Male erectile dysfunction, unspecified; F41.9 Anxiety disorder, unspecified; F33.9 Major depressive disorder, recurrent, unspecified; E66.9 Obesity, unspecified

== ENCOUNTER → 2024-11-25 09:57 | Outpatient (BNVA) | payer SELFPAY | PROVIDERS: PCP Internal Medicine; Visit Provider Internal Medicine | DX: J45.20 Mild intermittent asthma, uncomplicated (principal); K21.9 Gastro-esophageal reflux disease without esophagitis; E78.2 Mixed hyperlipidemia; E55.9 Vitamin D deficiency, unspecified; N28.9 Disorder of kidney and ureter, unspecified; D72.829 Elevated white blood cell count, unspecified; M54.50 Low back pain, unspecified; F19.10 Other psychoactive substance abuse, uncomplicated; N52.9 Male erectile dysfunction, unspecified; F41.9 Anxiety disorder, unspecified; F33.9 Major depressive disorder, recurrent, unspecified; E66.9 Obesity, unspecified; Z68.30 Body mass index [BMI] 30.0-30.9, adult; Z79.899 Other long term (current) drug therapy | CPT/HCPCS: 96127; 99212 ==

== ENCOUNTER 2025-03-06 10:05 | Emergency (ER) | payer OTHER, SELFPAY ==
--- NOTE | ~2025-03-06 | CT_ITS ---
CLINICAL HISTORY: posterior bruising, unknown, pain CT abdomen and pelvis with contrast Comparison: None provided Findings: left posterior lower back subcutaneous hematoma approximately measuring 3.8 x 5.0 x 16 cm. A 7.9 cm suspected lipomatous lesion anterolateral to the hematoma is seen. The lung bases are clear. Unremarkable gallbladder and solid organs. No urolithiasis. No bowel obstruction, pneumoperitoneum, or pneumatosis. Pelvic contents unremarkable. Normal appendix. No acute fracture. IMPRESSION: left posterior lower back subcutaneous hematoma approximately measuring 3.8 x 5.0 x 16 cm. Correlate with recent trauma. A 7.9 cm suspected lipomatous lesion anterolateral to the hematoma which could be artifactual due to dissecting hematoma. A 6-12 week follow-up study can be obtained for further evaluation. This document has been electronically signed by: Celina Mota MD on 03/06/2025 19:24:37
--- NOTE | ~2025-03-06 | CT_ITS ---
CLINICAL HISTORY: posterior bruising, unknown, pain CT chest with contrast Comparison: 03/06/2025 Findings: The heart is normal size. The visualized thyroid and mediastinum are unremarkable. No consolidation or effusion. The upper abdomen is unremarkable. No acute fractures. IMPRESSION: 1. Unremarkable chest CT. This document has been electronically signed by: Celina Mota MD on 03/06/2025 19:31:53
[2025-03-06 10:48] VITALS: BP 141/68; PULSE 74; RESP 18; TEMP 36.2; O2SAT 98; BMI 31.3
--- NOTE | 2025-03-06 14:55 | ED.GENADULT ---
HPI - General Adult General Chief complaint: Back Pain/Injury Stated complaint: Lump L back, Painful Time Seen by Provider: 03/06/25 14:55 Source: patient Mode of arrival: ambulatory Limitations: no limitations History of Present Illness ED Provider: Alesiha Willis PA-C HPI narrative: Patient is a 40 year old male with a past medical history of GERD, asthma, anxiety and depression presenting with a painful back mass. He says he woke up at 3 this morning and felt pain in his lower back. He describes it as sharp, 9/10 pain that radiates to his hips. The pain is constant and worsens when he bends the wrong way. He denies trauma to the area. He says the bump sticks out when he sits up and is painful on all throughout the lower back. He took ibuprofen this morning at 9 with minimal relief. He endorses an associated headache on and off today. He denies dizziness, lightheadedness, fever, chills, chest pain, palpitation, shortness of breath, n/v, changes to bowel movements, dysuria, or joint pain. Onset (ago): hour(s) Location: back (lower back) Severity: severe Severity scale (1-10): 9 Quality: sharp Pain Consistency: constant Relieving factors: rest Exacerbating factors: movement Associated symptoms: headaches Treatments prior to arrival: NSAID Related Data Home Medications ?Medication ?Instructions ?Recorded ?Confirmed naltrexone microspheres 380 mg 380 mg IM Q4W 07/03/23 11/25/24 intramuscular suspension,extended release (Vivitrol) Previous Rx's ?Medication ?Instructions ?Recorded sildenafil 25 mg tablet (Viagra) 25 mg PO DAILY PRN sexual activity 09/26/22 #10 tabs albuterol sulfate 90 mcg/actuation 2 puff inhalation Q4-6H PRN 11/13/23 aerosol inhaler (ProAir HFA) shortness of breath or wheezing #8.5 grams omeprazole 20 mg capsule,delayed 20 mg PO DAILY 90 days #90 caps 09/09/24 release cholecalciferol (vitamin D3) 50 50 mcg PO DAILY 90 days #90 caps 11/25/24 mcg (2,000 unit) capsule fluoxetine 20 mg capsule 40 mg (2 x 20 mg) PO DAILY 90 days 12/06/24 #180 caps cyclobenzaprine 5 mg tablet 5 mg PO BID PRN muscle spasm #30 02/15/25 tabs clonazepam 1 mg tablet 1 mg PO TID PRN anxiety 30 days 02/24/25 #90 tabs cyclobenzaprine 10 mg tablet 10 mg PO BEDTIME #1 tab 03/06/25 Allergies Allergy/AdvReac Type Severity Reaction Status Date / Time No Known Allergies (No Known Allergy Verified 03/06/25 10:50 Allergies*) Review of Systems Constitutional: Constitutional: Reports no additional constitutional complaints, Denies chills, Denies fever(s) and Denies night sweats Eyes: Eyes: Reports no additional eye complaints, Denies blurry vision, Denies change in vision, Denies diplopia, Denies eye discharge, Denies loss of vision and Denies eye pain ENT: Denies dizziness Cardiovascular: Cardiovascular: Reports no additional cardiovascular complaints, Denies chest pain, Denies lightheadedness, Denies Loss of Consciousness and Denies dyspnea Respiratory: Respiratory: Reports no additional respiratory complaints and Denies dyspnea Gastrointestinal: Gastrointestinal: Reports no additional gastrointestinal complaints, Denies abdominal pain, Denies melena, Denies hematochezia, Denies change in bowel habits and Denies change in stool character Genitourinary: Genitourinary: Reports no additional male genitourinary complaints, Denies hematuria, Denies oliguria, Denies difficulty urinating, Denies dysuria, Denies urinary frequency, Denies urinary hesitancy, Denies urinary incontinence and Denies urinary urgency Musculoskeletal: Musculoskeletal: Reports back pain (where area is bruised), Denies numbness and Denies tingling Neurologic: Denies dizziness, Denies loss of vision, Denies numbness and Denies tingling Psychiatric: Psychiatric: Reports no additional psychiatric complaints Endocrine: Endocrine: Reports no additional endocrine complaints Hematologic/Lymphatic: Hematologic/Lymphatic: Reports no additional hematologic/lymphatic complaints Allergic/Immunologic: Allergic/Immunologic: Reports no additional allergic/immunologic complaints PMFSH Past Medical History Attestation statement: The following information was validated with the patient. Source: old records reviewed and nursing notes reviewed Medical History Vitamin D deficiency Mixed hyperlipidemia Obesity (BMI 30-39.9) Depression Anxiety GERD (gastroesophageal reflux disease) Substance abuse Asthma Surgical History No pertinent past surgical history Family History Family History Mother Lung cancer Father COPD (chronic obstructive pulmonary disease) Social History Social History Housing: House Patient Tobacco Use Status: Never used Tobacco e-Cigarette/Vaping Use: Never Used Second Hand Smoke Exposure: No Substance Use Type: Heroin Advance Directives: No Advance Directives Information Provided: Yes service: No Current occupational status: unemployed Current occupational exposures/hazards: No Cognitive needs: No Hearing needs: No Vision needs: No Physical Exam ED Vital Signs: Vital Signs - 24 hr 03/06/25 10:48 03/06/25 14:58 03/06/25 18:58 Temperature 97.2 F 97.8 F 96.8 F Pulse Rate 74 62 60 Respiratory Rate 18 16 20 Blood Pressure 141/68 H 126/73 140/85 H Pulse Oximetry 98 100 96 Oxygen Delivery Method Room Air Room Air Room Air BMI result Body Mass Index 31.3 Const General: cooperative, no acute distress, alert and awake Nutritional Appearance: well nourished Orientation/consciousness: patient oriented x3 HENMT Head: Yes normal to inspection and Yes atraumatic Ears: hearing grossly normal bilaterally and external ears normal General nose exam: Normal external nose present, no nasal discharge noted and no epistaxis Face and sinus: Yes normal facial exam, No abrasion and No laceration Mouth: Normal oral and palatal mucosa present, no drooling and no muffled voice Eyes General: appearance normal, both eyes and all related structures Periorbital: periorbital findings normal Eyelids: Yes eyelids normal Conjunctivae: conjunctivae normal Pupils: Equal, round and reactive pupils present EOM: EOMs intact bilaterally Neck Neck: Yes normal visual inspection and Yes full ROM Resp Effort & Inspection: normal respiratory effort and able to speak in complete sentences Back/Spine/Pelvis Other: Left lower lumbar region: ~4 cm tender ecchymotic area located just lateral Neuro General: patient oriented x3, moves all extremities and CN's II-XI intact bilaterally Cranial nerves: Yes Equal, round and reactive pupils present Cognition (Neuro): normal cognition Extrem General: Yes normal to inspection, Yes full ROM and Yes capillary refill normal Psych Appearance: grossly normal Mental Status: mental status grossly normal Affect: normal affect Attitude: cooperative Thought process: Normal thought process present Thought content: Normal thought content present Insight: Good insight present (Psych) Course Reevaluation(s) Reevaluation #1: Received patient in sign out from [facility] pending imaging. CT A/P notable for left posterior subcutaneous hematoma with suspected lipomatous lesion anterolateral to the hematoma. CT chest without acute abnormality. Case discussed with Dr. Mukherjee who was in agreement that this represents a hematoma and patient can be discharged home, should avoid NSAIDs, can ice the area, etc.. Results discussed with patient and all questions answered. Advised daily assessment of the area and advised patient to return if the area increases in size or he develops hematuria, hematochezia or melena. Patient verbalized understanding of and agreement with plan. Patient requesting a muscle relaxer, states that his back is hurting more now from sitting on the hospital stretcher all day. Will send 1 tab of cyclobenzaprine to the pharmacy. Medications Administered Discontinued Medications Generic Name Dose Route Start Last Admin Trade Name Benoitq PRN Reason Stop Dose Admin Iohexol 85 ml 03/06/25 18:05 03/06/25 18:05 Iohexol 350 Mg/Ml 100 Ml Infus..Btl IV 03/06/25 18:06 85 ml ONCE ONE Administration Medical Decision Making Medical Decision Making [facility] Narrative: Patient is a 40 year old male with a past medical history of GERD, asthma, anxiety and depression. Patient's physical exam showed an area of left lower lateral back bruising and pain with palpation. Patient's blood work showed mildly elevated LFTs but were otherwise unremarkable. Patient's CT chest and abdomen/pelvis are pending. Patient signed out to [facility] pending CT imaging results. Differential Diagnosis Differential Diagnoses: The differential diagnosis associated with the presentation includes Hematoma Sebaceous cyst Dermal cyst Admission/Observation Consideration of admission/observation: Escalation of care including admission/observation considered Patient's disposition will be determined after CT scans are read. Lab Data [facility] Lab Attestation statement: I reviewed the patient's lab results. My interpretation of these results are in the MDM Rationale portion of this note. 03/06/25 15:42 03/06/25 15:42 Labs: Lab Results 03/06/25 Range/Units 15:42 WBC 9.9 (4.8-10.8) X10*3/uL RBC 4.34 L (4.60-5.80) X10*6/uL Hgb 13.2 L (14.0-18.0) g/dl Hct 37.9 L (42.0-52.0) % MCV 87.3 (80.0-98.0) fL MCH 30.4 (27.0-33.0) pg MCHC 34.8 (31.0-36.0) g/dl RDW 12.2 (11.0-16.0) % Plt Count 227 (160-400) X10*3/uL MPV 10.3 (9.4-12.4) fL Immature Gran % (Auto) 0.2 (0.0-0.4) % Neut % (Auto) 67.5 (45-73) % Lymph % (Auto) 18.0 L (20-40) % Graham % (Auto) 7.1 (2-11) % Eos % (Auto) 6.3 H (0-4) % Baso % (Auto) 0.9 (0-2) % Lymph # (Auto) 1.8 (1.2-4.9) X10*3/uL Graham # (Auto) 0.7 (0.1-1.2) X10*3/uL Eos # (Auto) 0.6 H (0.0-0.4) X10*3/uL Baso # (Auto) 0.1 (0.0-0.2) X10*3/uL Abs Immat Gran (auto) 0.02 (0.00-0.03) X10*3/uL Absolute Neuts (auto) 6.7 (2.0-8.3) x10*3/uL Absolute Nucleated RBC 0.000 (0.0-0.012) X10*3/uL Nucleated RBC % (auto) 0.0 (0.0-0.2) /100WBC Sodium 142 (135-145) mmol/L Potassium 4.4 (3.3-5.1) mmol/L Chloride 109 H (96-108) mmol/L Carbon Dioxide 29 (22-29) mmol/L Anion Gap 8 L (12-20) BUN 11 (9-16) mg/dL Creatinine 0.83 (0.5-1.4) mg/dL Estim Creat Clear Calc 133.8 Estimated GFR > 60 Random Glucose 94 (60-115) mg/dL Calcium 8.9 (8.4-10.2) mg/dL Total Bilirubin 0.3 (0.0-1.0) mg/dL AST 43 H (5-37) U/L ALT 102 H (0-40) U/L Alkaline Phosphatase 55 (39-117) U/L Total Protein 6.4 L (6.5-8.0) g/dL Albumin 4.2 (3.5-5.0) g/dL Discharge Plan Discharge Clinical Impression: Hematoma Patient Disposition: Home, Self-Care Instructions: Hematoma (ED) Additional Instructions: You were evaluated in the emergency department today for a tender mass to your lower back. CT imaging is consistent with a hematoma, also known as a bruise. We recommend that you avoid any NSAIDs (ibuprofen, naproxen, aspirin). You should also avoid drinking alcohol until this has resolved. You can apply ice to the area for 10-15 minutes at a time several times daily, using caution not to apply ice directly to the skin. You should evaluate the area at least once a day to ensure that it is not increasing in size, if it does you should return to the emergency department. You should also return to the emergency department if you develop blood in your urine or stool or have any other new or concerning symptoms. Follow up with your primary care provider as needed. Prescriptions: New cyclobenzaprine 10 mg tablet 10 mg PO BEDTIME Qty: 1 0RF No Action albuterol sulfate [ProAir HFA] 90 mcg/actuation HFA aerosol inhaler 2 puff inhalation Q4-6H PRN (Reason: shortness of breath or wheezing) Qty: 8.5 2RF omeprazole 20 mg capsule,delayed release(DR/EC) 20 mg PO DAILY 90 Days Qty: 90 1RF fluoxetine 20 mg capsule 40 mg PO DAILY 90 Days Qty: 180 0RF Rx Instructions: gets Rx from psychiatry cyclobenzaprine 5 mg tablet 5 mg PO BID PRN (Reason: muscle spasm) Qty: 30 0RF clonazepam 1 mg tablet 1 mg PO TID PRN (Reason: anxiety) 30 Days Qty: 90 0RF Rx Instructions: gets Rx from psychiatry sildenafil [Viagra] 25 mg tablet 25 mg PO DAILY PRN (Reason: sexual activity) Qty: 10 0RF Rx Instructions: administer 30 minutes to 4 hours before activity Vivitrol 380 mg suspension,extended rel recon 380 mg IM Q4W Patient Comments: goes to [facility] in [place] cholecalciferol (vitamin D3) 50 mcg (2,000 unit) capsule 50 mcg PO DAILY 90 Days Qty: 90 3RF Stand Alone Forms: Work/School Release Print Language: Finnish
[2025-03-06 14:58] VITALS: BP 126/73; PULSE 62; RESP 16; TEMP 36.6; O2SAT 100
[2025-03-06 15:48] LABS: MANUAL DIFF FLAG NO
[2025-03-06 15:51] LABS: Hematocrit 37.9 % (42.0-52.0); Hemoglobin 13.2 g/dl (14.0-18.0); Imm Gran Abs Auto 0.02 X10*3/uL (0.00-0.03); Imm Gran Pct Auto 0.2 % (0.0-0.4); Lymphocytes Absolute Auto 1.8 X10*3/uL (1.2-4.9); Mean Corpuscular HGB Conc 34.8 g/dl (31.0-36.0); Mean Corpuscular Hemoglobin 30.4 pg (27.0-33.0); Mean Corpuscular Volume 87.3 fL (80.0-98.0); NRBC Abs Auto 0.000 X10*3/uL (0.0-0.012); NRBC Pct Auto 0.0 /100WBC (0.0-0.2); Platelet Count 227 X10*3/uL (160-400); Red Blood Count 4.34 X10*6/uL (4.60-5.80); White Blood Count 9.9 X10*3/uL (4.8-10.8)
[2025-03-06 16:11] LABS: Alanine Aminotransferase 102 U/L (0-40); Albumin Level 4.2 g/dL (3.5-5.0); Alkaline Phosphatase 55 U/L (39-117); Anion Gap 8 (12-20); Aspartate Amino Transferase 43 U/L (5-37); Blood Urea Nitrogen 11 mg/dL (9-16); Calcium 8.9 mg/dL (8.4-10.2); Carbon Dioxide 29 mmol/L (22-29); Chloride 109 mmol/L (96-108); Creatinine Clr Calc Pharmacy 133.8; Estimated Glomerular Filt Rate > 60; Potassium 4.4 mmol/L (3.3-5.1); Sodium 142 mmol/L (135-145); Total Protein 6.4 g/dL (6.5-8.0)
[2025-03-06] MEDS: iohexoL 350 MG/ML 100 ML INFUS..BTL 85 ML IV (18:05)
[2025-03-06 18:58] VITALS: BP 140/85; PULSE 60; RESP 20; TEMP 36; O2SAT 96
[2025-03-06 20:28] VITALS: BP 143/93; PULSE 63; RESP 18; TEMP 36.5; O2SAT 98
--- NOTE | 2025-03-06 20:28 | PC.NURSE ---
Took over care from KRISTI Muirllo at 19:00, reviewed discharge paper work with pt. pt verbalized understanding.
[2025-03-06 20:29] VITALS: BP 143/93; PULSE 63; RESP 18; TEMP 36.5; O2SAT 98
== END 2025-03-06 20:31 | disposition home or self-care (01) ==
PROVIDERS: Physician Assistant Medical; Emergency Provider Emergency Medicine; PCP Internal Medicine
DX: R22.2 Localized swelling, mass and lump, trunk (principal); M54.50 Low back pain, unspecified
CPT/HCPCS: 36415; 71260; 74177; 80053; 85025; 99284; Q9967

== ENCOUNTER → 2025-03-06 15:33 | Outpatient (BNV) | payer OTHER, SELFPAY | PROVIDERS: Emergency Provider Emergency Medicine; PCP Internal Medicine; Visit Provider Student in an Organized Health Care Education/Training Program | DX: R07.9 Chest pain, unspecified (principal); S30.0XXA Contusion of lower back and pelvis, initial encounter | CPT/HCPCS: 71260; 74177 ==

== ENCOUNTER 2025-03-29 06:03 | Outpatient (REF) | payer OTHER, SELFPAY ==
[2025-03-29 06:36] LABS: MANUAL DIFF FLAG NO
[2025-03-29 07:41] LABS: Hematocrit 43.2 % (42.0-52.0); Hemoglobin 14.8 g/dl (14.0-18.0); Imm Gran Abs Auto 0.03 X10*3/uL (0.00-0.03); Imm Gran Pct Auto 0.5 % (0.0-0.4); Lymphocytes Absolute Auto 1.8 X10*3/uL (1.2-4.9); Mean Corpuscular HGB Conc 34.3 g/dl (31.0-36.0); Mean Corpuscular Hemoglobin 30.1 pg (27.0-33.0); Mean Corpuscular Volume 87.8 fL (80.0-98.0); NRBC Abs Auto 0.000 X10*3/uL (0.0-0.012); NRBC Pct Auto 0.0 /100WBC (0.0-0.2); Platelet Count 264 X10*3/uL (160-400); Red Blood Count 4.92 X10*6/uL (4.60-5.80); White Blood Count 6.5 X10*3/uL (4.8-10.8)
[2025-03-29 08:22] LABS: Appearance Urine Clear; Glucose Urine UA Negative (Negative); PH 6.0 (5.0-9.0); Specific Gravity - Urine >= 1.030 (1.005-1.025); UMIC TRIGGER UACC YES
[2025-03-29 08:26] LABS: Alanine Aminotransferase 25 U/L (0-40); Albumin Level 4.3 g/dL (3.5-5.0); Alkaline Phosphatase 60 U/L (39-117); Anion Gap 10 (12-20); Aspartate Amino Transferase 51 U/L (5-37); Blood Urea Nitrogen 14 mg/dL (9-16); Calcium 9.3 mg/dL (8.4-10.2); Carbon Dioxide 31 mmol/L (22-29); Chloride 105 mmol/L (96-108); Cholesterol 179 mg/dL (<200); Estimated Glomerular Filt Rate > 60; HDL Cholesterol 41 mg/dL (>40); Potassium 3.8 mmol/L (3.3-5.1); Sodium 142 mmol/L (135-145); Total Protein 6.6 g/dL (6.5-8.0); Triglycerides 175 mg/dL (<150)
[2025-03-29 08:38] LABS: UACC Culture Trigger YES
== END 2025-03-29 06:04 | disposition home or self-care (01) ==
LOC: HO.LAB 06:03
PROVIDERS: PCP Internal Medicine; Visit Provider Internal Medicine
DX: R30.0 Dysuria (principal); E78.00 Pure hypercholesterolemia, unspecified; D64.9 Anemia, unspecified; E55.9 Vitamin D deficiency, unspecified; N28.9 Disorder of kidney and ureter, unspecified
CPT/HCPCS: 36415; 80053; 80061; 81001; 81003; 82306; 84443; 85025; 87086

== ENCOUNTER 2025-04-07 09:55 | Outpatient (AMB) | payer OTHER, SELFPAY ==
[2025-04-07 09:59] VITALS: BP 120/80; PULSE 71; O2SAT 96; BMI 31.1
--- NOTE | 2025-04-07 09:59 | A.OFFPC_ITS ---
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 Required: No Accompanied by: Self / Same As Patient Allergies No Known Allergies (No Known Allergies*) Allergy (Verified 04/07/25 10:21) Medication List - Last Reconciled 04/07/25 by Jun Hartman MD albuterol sulfate 90 mcg/actuation (ProAir HFA) 2 puffs inhalation Q4-6H PRN cholecalciferol (vitamin D3) 50 mcg PO DAILY 90 days clonazepam 1 mg PO TID PRN 30 days cyclobenzaprine 10 mg PO BEDTIME cyclobenzaprine 5 mg PO BID PRN fluoxetine 40 mg (2 x 20 mg) PO DAILY 90 days omeprazole 20 mg PO DAILY 90 days sildenafil (Viagra) 25 mg PO DAILY PRN Tobacco use date assessed: 04/07/25 Dental Screening Dental Screen Date: 04/07/25 Did you have a dental visit in the last 12 months?: No Did you have a dental problem in the last 6 months where you did not have access to dental care?: No Was dental information given to patient?: No HPI [facility] f/u HPI Details Patient comes in today for his follow up visit States that he feels okay Relates that he fell backwards about a month ago and hurt his lower back He then went to the ER for evaluation and because of a large hematoma on his lower back, he was sent for CT of the abdomen and chest for further evaluation - all of his CT fortunately came back normal States that most of his lower back symptoms have resolved although he still has a large palpable lump on his left lower back and he has occasional low back pain He denies any headaches or dizziness Denies any chest pains, no SOB No nausea/vomiting, no abdominal pain No change in bowel habits noted States that he is currently still seeing a therapist with [facility] and is now scheduled to see a psychiatric prescriber on 04/17/2025 States that he has been off his Vivitrol injections for about 4 months now and is doing well without it; he also has not had any alcohol to drink in over 8 years now He had his follow up labs done last week - to discuss his results [facility] Medical History Vitamin D deficiency Mixed hyperlipidemia Obesity (BMI 30-39.9) Depression Anxiety GERD (gastroesophageal reflux disease) Substance abuse Asthma Surgical History No pertinent past surgical history Family History Mother Lung cancer Father COPD (chronic obstructive pulmonary disease) Social History Housing: House Patient Tobacco Use Status: Never used Tobacco e-Cigarette/Vaping Use: Never Used Second Hand Smoke Exposure: No Substance Use Type: Heroin service: No Current occupational status: unemployed Current occupational exposures/hazards: No Cognitive needs: No Hearing needs: No Vision needs: No Questionnaire PHQ-9 Over the last 2 weeks, how often have you been bothered by any of the following problems? 1. Little interest or pleasure in doing things: not at all 2. Feeling down, depressed, or hopeless: not at all 3. Trouble falling or staying asleep, or sleeping too much: several days 4. Feeling tired or having little energy: several days 5. Poor appetite or overeating: several days 6. Feeling bad about yourself - or that you are a failure or have let yourself or your family down: several days 7. Trouble concentrating on things, such as reading the newspaper or watching television: several days 8. Moving or speaking so slowly that other people could have noticed. Or the opposite - being so fidgety or restless that you have been moving around a lot more than usual: not at all 9. Thoughts that you would be better off or of hurting yourself in some way: not at all Total score: 5 Depression Screening Interpretation: Positive Depression Screening Follow-up: Existing condition and In treatment Depression Screening Done: Yes 60081 - PHQ-9 Billing: Yes Source: Developed by Drs. Bear Gonzales, Marlin Hernandez, Dion Larson and colleagues, with an educational alisha from [employer]. Thrive Questionnaire Date Thrive assessed: 04/07/25 I am a: Patient What is your living situation today?: I have a steady place to live Within the past 12 months, did the food you bought not last and you didn't have the money to get more?: I choose not to answer this question Within the past 12 months, did you worry whether your food would run out before you got money to buy more?: I choose not to answer this question Do you have trouble paying for medicines?: No Do you have trouble getting transportation to medical appointments?: No Do you have trouble paying your heating and electricity bill?: No Do you have trouble taking care of your child, family member or friend?: No Do you have trouble with day-to-day activities such as bathing, preparing meals, shopping, managing finances, etc.?: No Are you currently unemployed and looking for a job?: No Are you interested in more education?: No Please select the resources that you would like help with: None Currently or been in a relationship where the following occur: I choose not to answer THRIVE Score: 0 AUDIT C Alcohol Use Questionnaire (AUDIT-C) 1. How often do you have a drink containing alcohol?: Never 3. How often do you have six or more drinks on one occasion?: Never Total Score: 0 Score Reviewed/Action Taken: Yes ROGER-7 AMB Questionnaire ROGER-7 Date ROGER - 7 assessed: 04/07/25 Feeling nervous, anxious, or on edge: 1 = Several days Not being able to stop or control worryin = Several days Worrying too much about different things: 1 = Several days Trouble relaxin = Several days Being so restless that it is hard to sit still: 1 = Several days Becoming easily annoyed or irritable: 1 = Several days Feeling afraid as if something awful might happen: 1 = Several days Total ROGER-7 score (0-4 normal; 5-9 mild; 10-14 moderate; 15-21 severe): 7 Source: Developed by Drs. Bear Gonzales, Marlin Hernandez, Dion Larson and colleagues, with an educational alisha from [employer]. Review of Systems Const Denies chills, Denies fatigue, Denies fever(s) and Denies headache(s) ENT Denies dysphagia, Denies dizziness, Denies otalgia, Denies headache(s), Denies neck pain, Denies odynophagia and Denies sore throat Card Denies chest pain, Denies irregular heart rhythm, Denies palpitations and Denies dyspnea Resp Denies chest congestion, Denies cough and Denies dyspnea GI Denies abdominal pain, Denies constipation, Denies dysphagia, Denies heartburn, Denies diarrhea, Denies nausea, Denies odynophagia and Denies vomiting Denies difficulty urinating, Denies dysuria, Denies nocturia and Denies urinary frequency Musc Details: (+) large palpable lump on the left lower back Reports back pain (on and off over the lower back), Denies arthralgias and Denies neck pain Skin/Breast Denies rash Neuro Denies dizziness, Denies headache(s) and Denies paresthesias Psych Reports anxiety and Reports depression Endo Denies fatigue and Denies palpitations Physical exam (Primary Care) Vital Signs: Last Vital Signs Pulse 71 04/07/25 09:59 BP 120/80 04/07/25 09:59 Pulse Ox 96 04/07/25 09:59 Oxygen Delivery Method Room Air 04/07/25 09:59 BMI result Body Mass Index 31.1 Tobacco/Smoking Status: Tobacco use Status Tobacco use date assessed 04/07/25 04/07/25 10:04 Patient Tobacco Use Status Never used Tobacco 04/07/25 10:01 e-Cigarette/Vaping Use Never Used 04/07/25 10:01 PHQ-9: PHQ-9 Score PHQ-9: Total score 5 04/07/25 10:06 Depression Screening Interpretation: Positive Depression Screening Follow-up: Existing condition and In treatment Thrive Assessment: Date of Thrive Assessment Date Thrive assessed 04/07/25 04/07/25 10:04 Currently or been in a relationship where the following occur: I choose not to answer Const General: no acute distress and alert HENMT Ears: TM's normal bilaterally and EAC's normal Throat: Yes posterior oropharynx normal and Yes tonsils normal (no TP congestion) Neck Neck: Yes supple and No lymphadenopathy Thyroid: Thyroid normal Resp Auscultation: clear to auscultation bilaterally, no rales and no wheezes Cardio Rate: regular rate Rhythm: regular rhythm Heart sounds: no murmurs GI Palpation (GI): Soft to palpation and nontender Auscultation: normal bowel sounds General: Yes no CVA tenderness Back/Spine/Pelvis Other: (+) large, palpable, non-tender lipomatous (nodular) lesion over the left lower lumbar region Back: no CVA tenderness Thoracic/Lumbar Spine: lumbar spinal tenderness (mild) Skin Rashes: no rashes Extrem General: Yes no clubbing, cyanosis or edema Results Reviewed Results Reviewed: Laboratory Tests 03/29/25 03/29/25 06:28 06:34 WBC 6.5 Hgb 14.8 Hct 43.2 Plt Count 264 Sodium 142 Potassium 3.8 Creatinine 0.86 Estimated GFR > 60 Fasting Glucose 90 Calcium 9.3 AST 51 H ALT 25 Triglycerides 175 H Cholesterol 179 LDL Cholesterol, Calc 103 H HDL Cholesterol 41 25-OH Vitamin D Total 33.7 TSH 0.45 Ur Specific [place] >= 1.030 H Urine Protein Trace Urine Glucose (UA) Negative Urine Blood Small (1+) H Urine Nitrite Negative Ur Leukocyte Esterase Small (1+) H Coding Level of Care Code Est Pt Level 4 (28858) Diagnoses Mixed hyperlipidemia E78.2 Mild intermittent asthma without complication J45.20 Asthma severity: mild Asthma persistence: intermittent Asthma complication type: uncomplicated Gastroesophageal reflux disease without esophagitis K21.9 Esophagitis presence: without esophagitis Vitamin D deficiency E55.9 Renal insufficiency N28.9 Midline low back pain without sciatica, unspecified chronicity M54.50 Chronicity: unspecified Back pain laterality: midline Sciatica presence: without sciatica Substance abuse F19.10 Erectile dysfunction, unspecified erectile dysfunction type N52.9 Erectile dysfunction type: unspecified Anxiety F41.9 Episode of recurrent major depressive disorder, unspecified depression episode severity F33.9 Depression Type: major depressive disorder Major depression recurrence: recurrent Active/Remission status: currently active Major depression episode severity: unspecified Obesity (BMI 30-39.9) E66.9 Additional Codes PHQ-9 - 07422 - PHQ-9 Billing: Yes ([id number]) Assessment & Plan Assessment & Plan (1) Mixed hyperlipidemia: Code(s): E78.2 - Mixed hyperlipidemia Category: Medical Plan: Results of his labs done last week reviewed and discussed with patient - his cholesterol levels have improved significantly from previous overall His LDL cholesterol has improved to 103 mg/dl, total cholesterol has dropped to 179 mg/dl BUT his serum triglyceride level has increased to 175 mg/dl Reinforced low cholesterol diet Will recheck his labs and fasting lipids in 4 months for follow up (2) Asthma: Code(s): J45.909 - Unspecified asthma, uncomplicated Category: Medical Qualifiers: Asthma severity: mild Asthma persistence: intermittent Asthma complication type: uncomplicated Qualified Code(s): J45.20 - Mild intermittent asthma, uncomplicated Plan: Controlled Continue Albuterol HFA 1 to 2 inhalations Q 6 hours PRN (3) GERD (gastroesophageal reflux disease): Code(s): K21.9 - Gastro-esophageal reflux disease without esophagitis Category: Medical Qualifiers: Esophagitis presence: without esophagitis Qualified Code(s): K21.9 - Gastro-esophageal reflux disease without esophagitis Plan: Dietary restrictions reinforced Continue Omeprazole 20 mg QD (4) Vitamin D deficiency: Code(s): E55.9 - Vitamin D deficiency, unspecified Category: Medical Plan: Corrected - continue Vitamin D3 2000 units QD (5) Renal insufficiency: Code(s): N28.9 - Disorder of kidney and ureter, unspecified Category: Medical Plan: Resolved His serum creatinine and GFR were both slightly compromised when he had his labs done in September 2022 (were likely due to his acute issues at the time and he was still actively using illicit drugs then) but these appear to have recovered as his numbers were back to normal in June 2024 and have remained normal since, including on his labs done last week Will continue to monitor his renal function regularly (6) Low back pain: Code(s): M54.50 - Low back pain, unspecified Category: Medical Qualifiers: Chronicity: unspecified Back pain laterality: midline Sciatica presence: without sciatica Qualified Code(s): M54.50 - Low back pain, unspecified Plan: Patient reports experiencing recurrent low back pain for years and he hurt his lower back last month, resulting in a large hematoma but this has since resolved Reinforced activity and weight-lifting restrictions He was sent for lumbar spine x-rays a couple of years ago for further evaluation but he was never able to get this done He did have chest and abdominal/pelvic CT done last month for evaluation - CT came back negative Continue Cyclobenzaprine 5 mg TID PRN, Lidocaine patch 4% QD PRN and Ibuprofen 400 mg TID PRN with food (7) Substance abuse: Comment: heroin - is now doing well on Vivitrol injections Code(s): F19.10 - Other psychoactive substance abuse, uncomplicated Category: Medical Plan: Patient was on Vivitrol injections 380 mg IM every 4 weeks but states that he came off his injections about 4 months ago and has been doing well so far States that he has not had any alcohol relapse in about 8 years now Follow up with [facility] as scheduled or as needed (8) Erectile dysfunction: Code(s): N52.9 - Male erectile dysfunction, unspecified Category: Medical Qualifiers: Erectile dysfunction type: unspecified Qualified Code(s): N52.9 - Male erectile dysfunction, unspecified Plan: Continue Sildenafil 25 mg PRN (9) Anxiety: Code(s): F41.9 - Anxiety disorder, unspecified Category: Medical Plan: Continue Clonazepam 1 mg TID PRN - his Rx was being prescribed and managed by psychiatry at [facility], where he has been going for years but [facility] closed their practice last year He was referred to [facility] and he is now seeing a therapist there regularly He is also now scheduled to see a psychiatrist or psychiatric prescriber on 04/17/2025 (10) Depression: Code(s): F32.A - Depression, unspecified Category: Medical Qualifiers: Depression Type: major depressive disorder Major depression recurrence: recurrent Active/Remission status: currently active Major depression episode severity: unspecified Qualified Code(s): F33.9 - Major depressive disorder, recurrent, unspecified Plan: Continue Fluoxetine 40 mg QD His previous psychiatrist at [facility] had their practice closed and was on a waiting list to see another psychiatrist or prescriber and needed us to refill his prescriptions in the meantime but he is now scheduled to see a psychiatric prescriber for his initial visit on 04/17/2025 (11) Obesity (BMI 30-39.9): Code(s): E66.9 - Obesity, unspecified Category: Medical Plan: Reinforce diet/exercise as tolerated/lose weight Plan Follow up in 4 months Orders: Orders Complete Blood Count Auto Diff 4 Months D64.9 - Anemia, unspecified Comprehensive [place]. Panel Fast 4 Months E78.00 - Pure hypercholesterolemia, unspecified Lipid Panel 4 Months E78.00 - Pure hypercholesterolemia, unspecified UA CC w/rflx Micro + Cult 4 Months R30.0 - Dysuria Vitamin D 25-OH Total 4 Months E55.9 - Vitamin D deficiency, unspecified
== END 2025-04-07 11:45 | disposition home or self-care (01) ==
LOC: HO.HMCH 09:56
PROVIDERS: PCP Internal Medicine; Visit Provider Internal Medicine
DX: E78.2 Mixed hyperlipidemia (principal); F19.10 Other psychoactive substance abuse, uncomplicated; E66.9 Obesity, unspecified; Z68.31 Body mass index [BMI] 31.0-31.9, adult; J45.20 Mild intermittent asthma, uncomplicated; K21.9 Gastro-esophageal reflux disease without esophagitis; E55.9 Vitamin D deficiency, unspecified; N28.9 Disorder of kidney and ureter, unspecified; M54.50 Low back pain, unspecified; N52.9 Male erectile dysfunction, unspecified; F41.9 Anxiety disorder, unspecified; F33.9 Major depressive disorder, recurrent, unspecified

== ENCOUNTER → 2025-04-07 09:55 | Outpatient (BNVA) | payer OTHER, SELFPAY | PROVIDERS: PCP Internal Medicine; Visit Provider Internal Medicine | DX: E78.2 Mixed hyperlipidemia (principal); J45.20 Mild intermittent asthma, uncomplicated; K21.9 Gastro-esophageal reflux disease without esophagitis; E55.9 Vitamin D deficiency, unspecified; N28.9 Disorder of kidney and ureter, unspecified; M54.50 Low back pain, unspecified; F19.10 Other psychoactive substance abuse, uncomplicated; N52.9 Male erectile dysfunction, unspecified; F41.9 Anxiety disorder, unspecified; F33.9 Major depressive disorder, recurrent, unspecified; E66.9 Obesity, unspecified; Z68.31 Body mass index [BMI] 31.0-31.9, adult; Z79.899 Other long term (current) drug therapy; Z13.31 Encounter for screening for depression; Z13.39 Encounter for screening examination for other mental health and behavioral disorders | CPT/HCPCS: 96127 ==